=== PATIENT | female | born 1965 | race Caucasian/White ===

== ENCOUNTER 2020-07-10 12:14 | Emergency (ER) | payer MEDICAID, OTHER ==
[~2020-07-10] VITALS: Ht 162.6 cm; Wt 68.0 kg
[~2020-07-10 12:14] MED LIST: CIPR500T94 PO; CYCL-331 PO; IBUP200T44 PO
[2020-07-10 12:21] VITALS: BP 120/58
--- NOTE | 2020-07-10 13:01 | PHYS DOC ---
Past History Past Medical History: Anxiety, Depression, Schizophrenia Additional Past Medical Histor: hepatitis C (JAXON HANSEN DO) Past Surgical History: Other (JAXON HANSEN DO) Smoking: Less than 1pk/day Alcohol Use: None Drug Use: None (JAXON HANSEN DO) General Adult EDM: Chief Complaint: PSYCH EVALUATION HPI: HPI: 55 yo F PMH schizophrenia presents to the ed on 07/08, hx concerning for psychosis with homicidal ideations, made threatening comments of about wanting to hurt her son. Patient is well-known to this ED and noncompliant with her schizophrenic medications. Urinalysis was not obtained on prior ED visit. Potassium was 3.2 and replaced with 40 mEq oral potassium. Rapid Covid was negative. Pt with no complaints in ed. Is refusing to provide urine sample. (JAXON HANSEN DO) Review of Systems: Review of Systems: Constitutional: Denies fever or chills Eyes: Denies change in visual acuity HENT: Denies nasal congestion or sore throat Respiratory: Denies cough or shortness of breath Cardiovascular: Denies chest pain or edema GI: Denies abdominal pain, nausea, vomiting, bloody stools or diarrhea : Denies dysuria Musculoskeletal: Denies back pain or joint pain Integument: Denies rash Neurologic: Denies headache, focal weakness or sensory changes Endocrine: Denies polyuria or polydipsia Lymphatic: Denies swollen glands Psychiatric: Denies depression or anxiety (JAXON HANSEN DO) Allergies: Allergies: Allergies Coded Allergies Type Severity Reaction Last Updated Verified No Known Drug Allergies 07/08/20 No (JAXON HANSEN DO) Physical Exam: PE: Constitutional: Well developed, well nourished, no acute distress, non-toxic appearance. HENT: Normocephalic, atraumatic, Eyes: EOMI, conjunctiva normal, no discharge. Neck: Normal range of motion, supple, Cardiovascular: S1/2 present, regular rhythm Lungs & Thorax: Speaking in full sentences, bilateral equal chest rise, no tachypnea or increased work of breathing Abdomen: soft, no tenderness, Skin: Warm, dry, no erythema, no rash. [] Back: No tenderness, no CVA tenderness. [] Extremities: No tenderness, no cyanosis, no lower extremity edema Neurologic: Alert and oriented X 3, normal motor function, normal sensory function, no focal deficits noted. [] Psychologic: calm, becomes irritated with providing urine sample, is verbally directable, very disorganized, sleeping majority of shift (JAXON HANSEN DO) Current Patient Data: Vital Signs: Vital Signs Date Time Temp Pulse Resp B/P (MAP) Pulse Ox O2 Delivery O2 Flow Rate FiO2 07/10/20 12:21 97.2 80 16 120/58 (78) 95 Room Air (JAXON HANSEN DO) EKG: EKG: [] (JAXON HANSEN DO) Radiology/Procedures: Radiology/Procedures: [] (JAXON HANSEN DO) Heart Score: Risk Factors: Risk Factors: DM, Current or recent (<one month) smoker, HTN, HLP, family history of CAD, obesity. Risk Scores: Score 0 - 3: 2.5% MACE over next 6 weeks - Discharge Home Score 4 - 6: 20.3% MACE over next 6 weeks - Admit for Clinical Observation Score 7 - 10: 72.7% MACE over next 6 weeks - Early Invasive Strategies (JAXON HANSEN DO) Course & Med Decision Making: Course & Med Decision Making Pertinent Labs and Imaging studies reviewed. (See chart for details) [] Concern for psychosis in the setting of schizophrenia with homicidal ideations. Patient was discharged from the hospital earlier today for evaluation by a beauty operator. Patient is court ordered for inpatient psych. U/A contaminated, patient not with negative urine drug screen. Patient is excepted at [facility] that requests pt to be set at 11pm - no bed available until then. Transfer papers signed. Due to shift change/pt present in ed awaiting transfer, pt signed out to oncoming physician. (JAXON HANSEN DO) Course & Med Decision Making Did not see or evaluate patient. This patient was not here during my shift. (VANESSA HENRY MD) Dragon Disclaimer: Dragon Disclaimer: This electronic medical record was generated, in whole or in part, using a voice recognition dictation system. (JAXON HANSEN DO) Departure Departure: Impression: Primary Impression: Psychosis Additional Impression: Homicidal ideations Disposition: 65 DC/TRF TO PSYCH HOSP ([facility], accepted by Dr. Lizbeth) Condition: STABLE Referrals: PCP,NO (PCP) JAXON HANSEN DO Jul 10, 2020 13:01 VANESSA HENRY MD Jul 10, 2020 21:30
[2020-07-10 16:56] LABS: U PREG PATIENT NEGATIVE (NEG)
[2020-07-10 16:57] LABS: BILIRUBIN,URINE SMALL (NEG); CLARITY,URINE CLEAR; COLOR,URINE AMBER; GLUCOSE,URINE NEG (NEG)
[2020-07-10 16:58] LABS: BACTERIA,URINE FEW /HPF (0-FEW); NITRITE,URINE NEG (NEG); SQUAMOUS EPITHELIAL CELL,UR MOD /LPF; UROBILINOGEN,URINE >=8.0 mg/dL (0.2 mg/dL)
[2020-07-10 17:06] LABS: AMPHETAMINE/METHAMPHETAMINE NEG (NEG); BARBITURATES NEG (NEG); BENZODIAZEPINES NEG (NEG); CANNABINOIDS NEG (NEG); COCAINE NEG (NEG); METHADONE NEG (NEG); OPIATES NEG (NEG); PHENCYCLIDINE NEG (NEG)
== END 2020-07-10 22:30 ==
LOC: ER 12:14
DX: F29 Unspecified psychosis not due to a substance or known physiological condition (principal); R45.850 Homicidal ideations; F20.9 Schizophrenia, unspecified; F41.9 Anxiety disorder, unspecified; F32.9 Major depressive disorder, single episode, unspecified; F17.200 Nicotine dependence, unspecified, uncomplicated
CPT/HCPCS: 36415; 80307; 81001; 81025; 99285

== ENCOUNTER 2020-09-10 22:23 | Emergency (ER) | payer OTHER, MEDICAID ==
[~2020-09-10] VITALS: Ht 162.6 cm; Wt 91.0 kg
[~2020-09-10 22:23] MED LIST changes: +LIDOCAINE 2% SYRINGE 100 MG/5 ML DISP.SYRIN. ONE; +MIDAZOLAM HCL PF 5 MG/5 ML VIAL. ONE; +PROPOFOL 10,000 MCG/ML (20ML) VIAL IV ONE
--- NOTE | 2020-09-10 22:36 | PHYS DOC ---
Past History Past Medical History: Anxiety, Depression, Hepatitis, Schizophrenia Additional Past Medical Histor: hepatitis C Past Surgical History: Other Smoking: Less than 1pk/day Alcohol Use: None Drug Use: None General Adult HPI: HPI: - no response to noxious stimuli- Patient is a 55 year old female who presents with acute mental status change. Pt. last seen normal approximately 5 hrs ago. Son found mother in bath robe and non-responsive. Was unable to arouse his mother and called EMS. Patient on arrival snoring respirations with no gag response. Eyes Fixed midline. Patient was limp with occasional twitching type movements but no response to noxious stimuli. Glucose check was 154 per paramedics. Patient given two amps of Narcan upon arrival with no response. Patient was intubated for protection of airway. Patient has past medical history for anxiety, depression, schizophrenia, hepatitis C, homicidal ideation, suicidal ideation, no ncompliance, and tobacco abuse. Patient previously evaluated in the emergency department on 07/10/2020 for suicidal and homicidal ideation. Patient at that time transferred to [facility]. Evaluation at [facility] is unknown . It is unknow if patient took an overdose of her psych meds. Prescribed at [facility].., But pt. has history of this type behavior in the past. Patient on arrival was febrile with a temp of 101.5. Patient accelerated hypertensive. Reportedly no recent history of travel or specific ill contacts. No history of trauma. Review of Systems: Review of Systems: Not currently available due to the patient's mental status Family History: Family History: Not currently available because of patient's mental status Current Medications: Current Meds: Current Medications Medications (Trade) Dose Ordered Sig/La Start Time Stop Time Status Last Admin Dose Admin Ceftriaxone Sodium 2 gm/ Sodium Chloride 100 ml @ 200 mls/hr 1X ONCE 09/10/20 22:45 09/10/20 23:14 UNV Lactated Ringer's 1,000 ml @ 1,000 mls/hr Q1H 09/10/20 22:45 09/10/20 23:44 UNV Allergies: Allergies: Allergies Coded Allergies Type Severity Reaction Last Updated Verified amitriptyline Allergy Unknown 07/10/20 Yes Physical Exam: PE: Constitutional:in acute distress, appearance under effects of drug- by her twitching and extra pyramidal movements HENT: Normocephalic, atraumatic, bilateral external ears normal, oropharynx dry, no oral exudates, nose normal. No gag. Eyes: PERRLA, EOMI, conjunctiva normal, no discharge. [] Neck: Normal range of motion, no tenderness, supple, snoring respirations. Trachea midline Cardiovascular: Tachycardia heart rate regular rhythm, no murmur [] Lungs & Thorax: Bilateral breath sounds rhonchi, Rales on auscultation [] rhonchi more on Rt upper posterior lung flores. Borderline oxygen saturations with 100% nonrebreather Abdomen: Bowel sounds decreased, soft, no tenderness, no masses, no pulsatile masses. [] Skin: Warm, dry, no erythema, no rash. [] Back: No tenderness, no CVA tenderness. [] Extremities: Flaccid no response to noxious stimuli no edema. [] Neurologic: No response to noxious stimuli, did not cross react or withdrawal to noxious stimuli . DTRs +2 patella and brachial. Twitching type movements or jerks Psychologic: Unable to assess due to patient's mental status EKG: EKG: My interpretation of EKG shows a sinus at 98 bpm. [] Radiology/Procedures: Radiology/Procedures: [address] [address] IMAGING REPORT Signed PATIENT: DREAD BARBOSA ACCOUNT: [id number] : 1965 LOCATION: ER AGE: 55 SEX: F EXAM STATUS: PRE ER ORD. PHYSICIAN: NATHAN BRICEÑO MD REASON: DYSPNEA. RAD CONFIRM TUBE PLACEMENT PROCEDURE: PORTABLE CHEST 1V Study: XR CHEST 1V Indication: Dyspnea. Tube placement. Comparison: None. Findings: Endotracheal tube terminates approximately 1 cm above the lv. Enteric tube tip and sidehole are within the stomach. Streaky retrocardiac densities in the left favored on account of volume loss. No layering effusion or pneumothorax. The cardiomediastinal silhouette and katerina are within normal limits. Impression: 1. The endotracheal tube is within the trachea but is only 1 cm above the lv. Retraction by a few centimeters could be considered. Well-positioned enteric tube. 2. No acute radiographic abnormality of the chest. Mild appearing volume loss at the left lung base. Electronically signed by: DARIELA REN MD (09/11/2020 12:04 AM) [facility] DICTATED AND SIGNED BY: DARIELA REN MD DATE: 09/11/20 0002 CC: NATHAN BRICEÑO MD; PCP,NO ~MTH0 0 [][place] [address] IMAGING REPORT Signed PATIENT: DREAD BARBOSA ACCOUNT: [id number] : 1965 LOCATION: ER AGE: 55 SEX: F EXAM STATUS: REG ER ORD. PHYSICIAN: NATHAN BRICEÑO MD REASON: ACUTE MENTAL STATUS CHANGE PROCEDURE: CT HEAD WO CONTRAST STUDY: CT head without contrast INDICATION: Change in mental status. COMPARISON: None. TECHNIQUE: Axial CT imaging through the head without the use of intravenous contrast. Sagittal and coronal reformats were obtained. One or more of the following individualized dose reduction techniques were utilized for this examination: 1. Automated exposure control 2. Adjustment of the mA and/or kV according to patient size 3. Use of iterative reconstruction technique. FINDINGS: No acute intracranial hemorrhage. No mass effect, midline shift or hydrocephalus. Weeks-white matter differentiation is maintained. Unremarkable calvarium. No layering fluid seen within the visualized paranasal sinuses. Unremarkable mastoid air cells and middle ears. IMPRESSION: No acute intracranial abnormality by CT. Electronically signed by: DARIELA REN MD (09/11/2020 12:29 AM) [facility] DICTATED AND SIGNED BY: DARIELA REN MD DATE: 09/11/20 0028 CC: NATHAN BRICEÑO MD; PCP,NO ~MTH0 0 Heart Score: C/O Chest Pain: N/A HEART Score for Chest Pain: HEART Score for Chest Pain Response (Comments) Value History Slighlty/Non-Suspicious 0 ECG Normal 0 Age >45 - < 65 1 Risk Factors 1 or 2 Risk Factors 1 Troponin < Normal Limit 0 Total 2 Risk Factors: Risk Factors: DM, Current or recent (<one month) smoker, HTN, HLP, family history of CAD, obesity. Risk Scores: Score 0 - 3: 2.5% MACE over next 6 weeks - Discharge Home Score 4 - 6: 20.3% MACE over next 6 weeks - Admit for Clinical Observation Score 7 - 10: 72.7% MACE over next 6 weeks - Early Invasive Strategies Course & Med Decision Making: Course & Med Decision Making Pertinent Labs and Imaging studies reviewed. (See chart for details) Procedure note- Intubation-emergent intubation for protection of airway. Patient Mallampati 3. No obvious facial neck or head trauma. Patient received succinylcholine 100 mg, 2 mg of Versed, and lidocaine 100 mg. 7. titrated for lung volumes tube placed with videoscope with follow-up, with tube CO2 change. Breath sounds equal apex. No breath sounds over stomach. Increase oxygenation. Tube secured with fixation device at 23 cm gum line. Patient sedated with propofol and Versed. Oxygen passed without auscultation over stomach. The chest x-ray shows adequate placement of OG and ET tube. After being placed on BiPAP pH 7.42 CO2 38 oxygen 177 bicarb 24 100%-BiPAP titrate for lung volumes of 500 [] Attempt at central line left IJ= unable to thread triple-lumen over wire. Attempt DC'd and x-ray was performed showed no pneumothorax and adequate ET and NG placement. Discussed presentation testing and treatment plan with Dr. Alatorre advised he would accept pt at [facility]. Critical Care time not counting procedure was 90 min.s. Impression: 1. Acute Mental Status Change 2. Accelerated hypertension 3. Diabetes glucose 176 4. Elevated troponin 0.125 5. Elevated AST60, ALT 82, Alk Mait337 6. Tachycardia 7. Fever Drugs Screens Pending at transfer [facility] Pt appear s to have some salicylates in her system but minimal Tylenol so will treat her fever with rectal Tylenol and fluid boluses. Pt. did receive Versed for possible atypical seizure vs postictal seizure. Pt also received two grams of Rocephin if there is a bacterial source of fever. Still suspect most like a over dosage of psychiatric meds because of fever, extraparametal movements etc.. Dragon Disclaimer: Tonio Disclaimer: This electronic medical record was generated, in whole or in part, using a voice recognition dictation system. Departure Departure: Referrals: PCP,NO (PCP) Tonio Disclaimer This chart was dictated in whole or in part using Voice Recognition software in a busy, high-work load, and often noisy Emergency Department environment. It may contain unintended and wholly unrecognized errors or omissions. NATHAN BRICEÑO MD Sep 10, 2020 22:36
[2020-09-10] MEDS ORDERED: IV NORMAL SALINE 100ML 100 ML ONE (22:41)
[2020-09-10] MEDS ORDERED: NALOXONE 2 MG/2 ML DISP.SYRIN. IV ONE (22:45)
[2020-09-10] MEDS ORDERED: IV RINGERS SOLUTION,LACTATED 1,000 ML IV SCH (22:45)
[2020-09-10] MEDS ORDERED: NALOXONE 0.4 MG/ML VIAL. ONE (22:45)
[2020-09-10] MEDS ORDERED: IV RINGERS SOLUTION,LACTATED 1,000 ML IV ONE (22:45)
[2020-09-10] MEDS ORDERED: PROPOFOL 100 ML IV ONE (22:54)
[2020-09-10] MEDS ORDERED: SUCCINYLCHOLINE 200 MG/10 ML VIAL. ONE (22:54)
[2020-09-10 23:05] LABS: CALCIUM 9.3 mg/dL (8.5-10.1); CREATININE 1.1 mg/dL (0.6-1.0); POTASSIUM 4.1 mmol/L (3.5-5.1)
[2020-09-10 23:06] LABS: BASO # 0.1 x10^3/uL (0.0-0.2); BASO % 1 % (0-3); EOS % 0 % (0-3); HEMATOCRIT 40.5 % (36.0-47.0); HEMOGLOBIN 13.4 g/dL (12.0-15.5); LYMPH # 1.1 x10^3/uL (1.0-4.8); LYMPH % 10 % (24-48); MEAN CORPUSCULAR HEMOGLOBIN 30 pg (25-35); MEAN CORPUSCULAR HGB CONC 33 g/dL (31-37); MEAN CORPUSCULAR VOLUME 90 fL (79-100); MONO # 0.5 x10^3/uL (0.0-1.1); MONO % 5 % (0-9); NEUT # 9.2 x10^3uL (1.8-7.7); NEUT % 84 % (31-73); PLATELET COUNT 229 x10^3/uL (140-400); RED BLOOD COUNT 4.47 x10^6/uL (3.50-5.40); RED CELL DISTRIBUTION WIDTH 13.9 % (11.5-14.5)
[2020-09-10 23:07] LABS: ACETAMIN < 2.0 mcg/mL (10-30); SALIC 2.8 mg/dL (2.8-20.0)
[2020-09-10 23:08] LABS: ETHANOL < 10 mg/dL (0-10)
[2020-09-10] MEDS ORDERED: LABETALOL 20 MG/4 ML DISP.SYRIN. ONE (23:10)
[2020-09-10 23:19] LABS: ALBUMIN 3.3 g/dL (3.4-5.0); DIRECT BILIRUBIN 0.2 mg/dL (0.0-0.2); MAGNESIUM 1.3 mg/dL (1.8-2.4); TOTAL BILIRUBIN 0.5 mg/dL (0.2-1.0); TOTAL PROTEIN 7.7 g/dL (6.4-8.2)
--- NOTE | 2020-09-11 00:07 | RAD ---
Study: XR CHEST 1V Indication: Dyspnea. Tube placement. Comparison: None. Findings: Endotracheal tube terminates approximately 1 cm above the lv. Enteric tube tip and sidehole are w ithin the stomach. Streaky retrocardiac densities in the left favored on account of volume loss. No layering effusion or pneumothorax. The cardiomediastinal silhouette and katerina are within normal limits. Impression: 1. The endotracheal tube is within the trachea but is only 1 cm above the lv. Retraction by a few centimeters could be considered. Well-positioned enteric tube. 2. No acute radiographic abnormality of the chest. Mild appearing volume loss at the left lung base. Electronically signed by: DARIELA REN MD (09/11/2020 12:04 AM) [facility]
[2020-09-11] MEDS ORDERED: ACETAMINOPHEN 650 MG SUPP.RECT. PR ONE (00:30)
--- NOTE | 2020-09-11 00:31 | RAD ---
STUDY: CT head without contrast INDICATION: Change in mental status. COMPARISON: None. TECHNIQUE: Axial CT imaging through the head without the use of intravenous contrast. Sagittal and co heide reformats were obtained. One or more of the following individualized dose reduction techniques were utilized for this examinat ion: 1. Automated exposure control 2. Adjustment of the mA and/or kV according to patient size 3. Use of iterative reconstruction technique. FINDINGS: No acute intracranial hemorrhage. No mass effect, midline shift or hydrocephalus. Weeks-white matter d ifferentiation is maintained. Unremarkable calvarium. No layering fluid seen within the visualized paranasal sinuses. Unremarkable mastoid air cells and middle ears. IMPRESSION: No acute intracranial abnormality by CT. Electronically signed by: DARIELA REN MD (09/11/2020 12:29 AM) [facility]
[2020-09-11 00:59] LABS: BARBITURATES NEG (NEG); BENZODIAZEPINES POS (NEG); CANNABINOIDS NEG (NEG); COCAINE NEG (NEG); METHADONE NEG (NEG); OPIATES NEG (NEG); PHENCYCLIDINE NEG (NEG)
[2020-09-11 01:03] LABS: BACTERIA,URINE 0 /HPF (0-FEW); BILIRUBIN,URINE SMALL (NEG); CLARITY,URINE CLEAR; COLOR,URINE AMBER; GLUCOSE,URINE NEG (NEG); NITRITE,URINE NEG (NEG)
[2020-09-11 01:04] LABS: AMPHETAMINE/METHAMPHETAMINE NEG (NEG)
[2020-09-11 01:09] LABS: BGAS PH 7.4 (7.35-7.45)
[2020-09-11 01:59] VITALS: BP 177/89
[2020-09-11] MEDS ORDERED: LABETALOL 20 MG/4 ML DISP.SYRIN. IVP ONE (02:00)
[2020-09-11] MEDS ORDERED: MIDAZOLAM HCL PF 5 MG/5 ML VIAL. IV ONE (02:00)
[2020-09-11] MEDS ORDERED: SUCCINYLCHOLINE 200 MG/10 ML VIAL. IV ONE (02:00)
[2020-09-11] MEDS ORDERED: PROPOFOL 10,000 MCG/ML (20ML) VIAL IV ONE (02:30)
[2020-09-11] MEDS ORDERED: LIDOCAINE 2% PF 5 ML VIAL. IV ONE (02:30)
[2020-09-11] MEDS ORDERED: NALOXONE 0.4 MG/ML VIAL. IV ONE (02:30)
--- NOTE | 2020-09-11 03:50 | EKG ---
[address] [address] Test Date: 2020-09-10 Test Time: 23:53:21 Pat Name: DREAD BARBOSA Department: Room: Gender: F Electronics Warfare Technician: OUMOU : 1965 Requested By: NATHAN BRICEÑO Order Number: [id number] Reading MD: Measurements Intervals [place] Rate: 98 P: 66 CO: 146 QRS: 57 QRSD: 76 T: 38 QT: 348 QTc: 446 Interpretive Statements SINUS RHYTHM NORMAL ECG RI6.02 No previous ECG available for comparison
== END 2020-09-11 02:02 | disposition short-term general hospital (02) ==
LOC: ER 22:23
DX: R41.82 Altered mental status, unspecified (principal); I10 Essential (primary) hypertension; E11.9 Type 2 diabetes mellitus without complications; R77.8 Other specified abnormalities of plasma proteins; R79.89 Other specified abnormal findings of blood chemistry; R00.0 Tachycardia, unspecified; R50.9 Fever, unspecified; F41.9 Anxiety disorder, unspecified; F32.9 Major depressive disorder, single episode, unspecified; F20.9 Schizophrenia, unspecified; F17.200 Nicotine dependence, unspecified, uncomplicated; Z20.822 Contact with and (suspected) exposure to COVID-19; Z88.8 Allergy status to other drugs, medicaments and biological substances
CPT/HCPCS: 31500; 36415; 36556; 36600; 51702; 70450; 71045; 80048; 80076; 80307; 80329; 81001; 82550; 82803; 83605; 83690; 83735; 83880; 84443; 84484; 85025; 85379; 85610; 85730; 86140; 87040; 87205; 93005; 94002; 96361; 96365; 96375; 99291; 99292; C9803; G0480; J0330; J0696; J2001; J2250; J2310; J2704; J3490; J7120; U0003; U0005; 87077

== ENCOUNTER 2020-11-19 15:34 | Emergency (ER) | payer OTHER, MEDICAID ==
[~2020-11-19] VITALS: Ht 167.6 cm; Wt 82.0 kg
[~2020-11-19 15:34] MED LIST changes: -LIDOCAINE 2% SYRINGE 100 MG/5 ML DISP.SYRIN. ONE; -MIDAZOLAM HCL PF 5 MG/5 ML VIAL. ONE; -PROPOFOL 10,000 MCG/ML (20ML) VIAL IV ONE
--- NOTE | 2020-11-19 16:37 | PHYS DOC ---
Past History Past Medical History: Anxiety, Depression, Hepatitis, Schizophrenia Additional Past Medical Histor: hepatitis C (MAGNO LEE APRN) Past Surgical History: , Tubal ligation, Other (MAGNO LEE APRN) Smoking: Less than 1pk/day Alcohol Use: None Drug Use: None (MAGNO LEE APRN) General Adult EDM: Chief Complaint: MEDICAL CLEARANCE HPI: HPI: Patient is a 55-year-old female being sent to the ER today by [facility] deputy. Patient was evicted from her home today for unsafe living conditions. The [facility]'s deputy determined that patient has mental health problems and takes no medications and so she was sent here for a mental health evaluation. Patient reports a history of schizoaffective disorder and depression she takes no medications for these health problems and has not taken any medications for a long time. Patient reports that she used to take Cymbalta. She does not follow-up with anyone for mental health but she reports she is willing to to inpatient mental health treatment. patient denies any suicidal or homicidal ideation, she reports occasional auditory hallucinations but denies visual indra lucinations. She denies headache, chest pain, shortness of breath, dizziness. (MAGNO LEE APRN) Review of Systems: Review of Systems: 14 body systems of the review of systems have been reviewed. See HPI for pertinent positive and negative responses, otherwise all other systems are negative, nonpertinent or noncontributory (MAGNO LEE APRN) Allergies: Allergies: Allergies Coded Allergies Type Severity Reaction Last Updated Verified amitriptyline Allergy Unknown 07/10/20 Yes (MAGNO LEE APRN) Physical Exam: PE: Constitutional: Well developed, well nourished, no acute distress, non-toxic appearance. [] HENT: Normocephalic, atraumatic Eyes: PERRLA, EOMI, conjunctiva normal, no discharge. [] Neck: Normal range of motion, no stridor [] Cardiovascular:Heart rate regular rhythm, no murmur [] Lungs & Thorax: Bilateral breath sounds clear to auscultation [] Skin: Warm, dry, no erythema, no rash. [] Back: No tenderness Extremities: No tenderness, no cyanosis, no clubbing, ROM intact, no edema. [] Neurologic: Alert and oriented X 3, normal motor function, normal sensory function, no focal deficits noted. [] Psychologic: Affect normal, judgement normal, mood normal. [] (MAGNO LEE APRN) Current Patient Data: Labs: Laboratory Tests Test 11/19/20 18:51 11/19/20 18:54 White Blood Count 6.4 x10^3/uL Red Blood Count 4.23 x10^6/uL Hemoglobin 12.3 g/dL Hematocrit 38.2 % Mean Corpuscular Volume 90 fL Mean Corpuscular Hemoglobin 29 pg Mean Corpuscular Hemoglobin Concent 32 g/dL Red Cell Distribution Width 14.8 % Platelet Count 200 x10^3/uL Neutrophils (%) (Auto) 50 % Lymphocytes (%) (Auto) 36 % Monocytes (%) (Auto) 11 % Eosinophils (%) (Auto) 3 % Basophils (%) (Auto) 1 % Neutrophils # (Auto) 3.2 x10^3uL Lymphocytes # (Auto) 2.3 x10^3/uL Monocytes # (Auto) 0.7 x10^3/uL Eosinophils # (Auto) 0.2 x10^3/uL Basophils # (Auto) 0.0 x10^3/uL Sodium Level 144 mmol/L Potassium Level 3.8 mmol/L Chloride Level 110 mmol/L Carbon Dioxide Level 29 mmol/L Anion Gap 5 Blood Urea Nitrogen 11 mg/dL Creatinine 0.9 mg/dL Estimated GFR (Cockcroft-Gault) 65.5 BUN/Creatinine Ratio 12 Glucose Level 102 mg/dL Calcium Level 8.4 mg/dL Total Bilirubin 0.2 mg/dL Aspartate Amino Transf (AST/SGOT) 58 U/L Alanine Aminotransferase (ALT/SGPT) 69 U/L Alkaline Phosphatase 108 U/L Total Protein 7.1 g/dL Albumin 3.2 g/dL Albumin/Globulin Ratio 0.8 SARS-CoV-2 Antigen (Rapid) Negative Vital Signs: Vital Signs Date Time Temp Pulse Resp B/P (MAP) Pulse Ox O2 Delivery O2 Flow Rate FiO2 11/19/20 16:15 98.1 84 16 145/67 98 Room Air (MAGNO LEE APRN) EKG: EKG: [] (MAGNO LEE APRN) Radiology/Procedures: Radiology/Procedures: [] (MAGNO LEE APRN) Heart Score: C/O Chest Pain: No Risk Factors: Risk Factors: DM, Current or recent (<one month) smoker, HTN, HLP, family history of CAD, obesity. Risk Scores: Score 0 - 3: 2.5% MACE over next 6 weeks - Discharge Home Score 4 - 6: 20.3% MACE over next 6 weeks - Admit for Clinical Observation Score 7 - 10: 72.7% MACE over next 6 weeks - Early Invasive Strategies (MAGNO LEE APRN) Course & Med Decision Making: Course & Med Decision Making Pertinent Labs and Imaging studies reviewed. (See chart for details) Patient sent to the ER today for a mental health evaluation. I spoke with the PAT team and they will come in to evaluate patient for inpatient psychiatric treatment. Patient is notified of this care plan and is agreeable at this time for inpatient psychiatric treatment if available. Patient spoke with the pact team. Patient states that she is to follow-up at the [facility] but no longer is willing to follow-up there. She also reports that she was inpatient at [facility] in May she does have a positive history of suicidal ideation and self-harm by cutting. Labs ordered for medical clearance for inpatient hospitalization. Her blood work is unremarkable and she is noted for inpatient psychiatric placement. I spoke with staff member at [facility] and gave them report. They will be excepting patient for inpatient psychiatric treatment. (MAGNO LEE APRN) Course & Med Decision Making Did not see or evaluate patient. Agree with CRITICAL CARE UNIT NURSE's work-up and disposition per note. (VANESSA HENRY MD) Dragon Disclaimer: Dragon Disclaimer: This electronic medical record was generated, in whole or in part, using a voice recognition dictation system. (MAGNO LEE APRN) Departure Departure: Impression: Primary Impression: Psychiatric disturbance Disposition: [facility] Condition: GOOD Referrals: PCP,NO (PCP) Patient Instructions: Depression, Adult, Schizoaffective Disorder Additional Instructions: Thank you for choosing [facility] and allowing me to participate in your care. Please follow up with your primary care provider tomorrow regarding your ER visit. You are being sent to [facility] for in patient psychiatric treatment. If you in the future experience suicidal or homicidal ideation please the ER immediately. EMERGENCY DEPARTMENT GENERAL DISCHARGE INSTRUCTIONS Thank you for coming to [facility] (ED) today and trusting us with you care. We trust that you had a positivie experience in our Emergency Department. If you wish to speak to the department management, you may call the director at [phone]. YOUR FOLLOW UP INSTRUCTIONS ARE FOLLOWS: 1. Do you have a private Doctor? If you do not have a private doctor, please ask for a resource list of physicians or clinics that may be able to assist you with follow up care. 2. The Emergency Physician has interpreted your x-rays. The X-Ray specialist will also review them. If there is a change in the findings, you will be notified in 48 hours when at all possible. 3. A lab test or culture has been done, your results will be reviewed and you will be notified if you need a change in treatment. ADDITIONAL INSTRUCTIONS AND INFORMATION: 1. Your care today has been supervised by a physician who is specially trained in emergency care. Many problems require more than one evaluation for a complete diagnosis and treatment. We recommend that you schedule your follow up appointment as recommended to ensure complete treatment of you illness or injury. If you are unable to obtain follow up care and continue to have a problem, or if your condition worsens, we recommend that you return to the ED. 2. We are not able to safely determine your condition over the phone nor are we able to give sound medical advice over the phone. For these safety reasons, if you call for medical advice we will ask you to come to the ED for further evaluation. 3. If you have any questions regarding these discharge instructions please call the ED at [phone]. SAFETY INFORMATION: In the interest of safety, wellness, and injury prevention; we encourage you to wear your sealbelt, if you smoke; quite smoking, and we encourage family to use a protective helmet for bicycling and other sporting events that present an increased risk for head injury. IF YOUR SYMPTOMS WORSEN OR NEW SYMPTOMS DEVELOP, OR YOU HAVE CONCERNS ABOUT YOUR CONDITION; OR IF YOUR CONDITION WORSENS WHILE YOU ARE WAITING FOR YOUR FOLLOW UP APPO INTMENT; EITHER CONTACT YOUR PRIMARY CARE DOCTOR, THE PHYSICIAN WHOSE NAME AND NUMBER YOU WERE GIVEN, OR RETURN TO THE ED IMMEDIATELY. MAGNO LEE APRN Nov 19, 2020 16:37 VANESSA HENRY MD Nov 19, 2020 20:55
[2020-11-19 19:21] LABS: CALCIUM 8.4 mg/dL (8.5-10.1); CREATININE 0.9 mg/dL (0.6-1.0); GFR 65.5; POTASSIUM 3.8 mmol/L (3.5-5.1)
[2020-11-19 19:22] LABS: BASO % 1 % (0-3); EOS # 0.2 x10^3/uL (0.0-0.7); EOS % 3 % (0-3); HEMATOCRIT 38.2 % (36.0-47.0); HEMOGLOBIN 12.3 g/dL (12.0-15.5); LYMPH # 2.3 x10^3/uL (1.0-4.8); LYMPH % 36 % (24-48); MEAN CORPUSCULAR HEMOGLOBIN 29 pg (25-35); MEAN CORPUSCULAR HGB CONC 32 g/dL (31-37); MEAN CORPUSCULAR VOLUME 90 fL (79-100); MONO # 0.7 x10^3/uL (0.0-1.1); MONO % 11 % (0-9); NEUT # 3.2 x10^3uL (1.8-7.7); NEUT % 50 % (31-73); PLATELET COUNT 200 x10^3/uL (140-400); RED BLOOD COUNT 4.23 x10^6/uL (3.50-5.40); RED CELL DISTRIBUTION WIDTH 14.8 % (11.5-14.5); WHITE BLOOD COUNT 6.4 x10^3/uL (4.0-11.0)
[2020-11-19 19:27] LABS: ALBUMIN 3.2 g/dL (3.4-5.0); ALBUMIN/GLOBULIN RATIO 0.8 (1.0-1.7); TOTAL BILIRUBIN 0.2 mg/dL (0.2-1.0); TOTAL PROTEIN 7.1 g/dL (6.4-8.2)
[2020-11-19 21:53] VITALS: BP 138/72
== END 2020-11-19 21:53 ==
LOC: ER 15:34
DX: F41.9 Anxiety disorder, unspecified (principal); F32.9 Major depressive disorder, single episode, unspecified; F20.9 Schizophrenia, unspecified; F17.200 Nicotine dependence, unspecified, uncomplicated; Z98.51 Tubal ligation status; Z20.822 Contact with and (suspected) exposure to COVID-19
CPT/HCPCS: 36415; 80053; 85025; 87426; 99283; C9803; U0003

== ENCOUNTER 2020-12-12 18:28 | Emergency (ER) | payer OTHER, MEDICAID ==
[~2020-12-12] VITALS: Ht 163.8 cm; Wt 80.8 kg
[2020-12-12] MEDS ORDERED: IV NORMAL SALINE 1,000ML 1,000 ML IV ONE ×2 (20:15)
[2020-12-12 20:36] LABS: BASO # 0.1 x10^3/uL (0.0-0.2); BASO % 1 % (0-3); EOS # 0.2 x10^3/uL (0.0-0.7); EOS % 2 % (0-3); LYMPH # 2.4 x10^3/uL (1.0-4.8); LYMPH % 23 % (24-48); MEAN CORPUSCULAR HEMOGLOBIN 29 pg (25-35); MEAN CORPUSCULAR HGB CONC 34 g/dL (31-37); MEAN CORPUSCULAR VOLUME 87 fL (79-100); MONO # 1.1 x10^3/uL (0.0-1.1); MONO % 10 % (0-9); NEUT # 6.8 x10^3uL (1.8-7.7); NEUT % 64 % (31-73); PLATELET COUNT 235 x10^3/uL (140-400); RED BLOOD COUNT 4.14 x10^6/uL (3.50-5.40); RED CELL DISTRIBUTION WIDTH 16.3 % (11.5-14.5); WHITE BLOOD COUNT 10.6 x10^3/uL (4.0-11.0)
--- NOTE | 2020-12-12 20:43 | PHYS DOC ---
Past History Past Medical History: Anxiety, Depression, Hepatitis, Schizophrenia Additional Past Medical Histor: hepatitis C (JOSE RAFAEL JOHNSTON APRN) Past Surgical History: , Tubal ligation, Other (JOSE RAFAEL JOHNSTON APRN) Smoking: Less than 1pk/day Alcohol Use: None Drug Use: None (JOSE RAFAEL JOHNSTON APRN) General Adult EDM: Chief Complaint: HEAT EXPOSURE HPI: HPI: Patient is a 55-year-old female who presents with heat exhaustion. Patient is homeless and states that she has been outside for the last 2 days. Patient states "I hurt all over, my whole body hurts". Patient has a sunburn to her feet, arms and face. Patient is alert and oriented. Denies nausea/vomiting/diarrhea. Hemodynamically stable. History of schizophrenia, anxiety and depression. (JOSE RAFAEL JOHNSTON APRN) Review of Systems: Review of Systems: Constitutional: Denies fever or chills Eyes: Denies change in visual acuity HENT: Denies nasal congestion or sore throat Respiratory: Denies cough or shortness of breath Cardiovascular: Denies chest pain or edema GI: Denies abdominal pain, nausea, vomiting, bloody stools or diarrhea : Denies dysuria Musculoskeletal: Reports pain all over her body Integument: Sunburn to face, bilateral arms, bilateral feet Neurologic: Denies headache, focal weakness or sensory changes Endocrine: Denies polyuria or polydipsia Lymphatic: Denies swollen glands Psychiatric: Denies depression or anxiety (JOSE RAFAEL JOHNSTON APRN) Current Medications: Current Meds: Current Medications Medications (Trade) Dose Ordered Sig/[facility] Start Time Stop Time Status Last Admin Dose Admin Sodium Chloride 1,000 ml @ 1,000 mls/hr 1X ONCE 12/12/20 20:15 12/12/20 21:14 12/12/20 20:19 1,000 MLS/HR (JOSE RAFAEL JOHNSTON APRN) Allergies: Allergies: Allergies Coded Allergies Type Severity Reaction Last Updated Verified amitriptyline Allergy Unknown 07/10/20 Yes (JOSE RAFAEL JOHNSTON APRN) Physical Exam: PE: Constitutional: Well developed, well nourished, no acute distress, non-toxic appearance. [] HENT: Normocephalic, atraumatic, bilateral external ears normal, oropharynx moist, no oral exudates, nose normal. [] Eyes: PERRLA, EOMI, conjunctiva normal, no discharge. [] Neck: Normal range of motion, no tenderness, supple, no stridor. [] Cardiovascular:Heart rate regular rhythm, no murmur [] Lungs & Thorax: Bilateral breath sounds clear to auscultation [] Abdomen: Bowel sounds normal, soft, no tenderness, no masses, no pulsatile masses. [] Skin: Sunburn to bilateral arms, feet, face Back: No tenderness, no CVA tenderness. [] Extremities: Tenderness on all extremities, range of motion intact, no edema Neurologic: Alert and oriented X 3, normal motor function, normal sensory function, no focal deficits noted. [] Psychologic: Affect normal, judgement normal, mood normal. [] (JOSE RAFAEL JOHNSTON APRN) Current Patient Data: Vital Signs: Vital Signs Date Time Temp Pulse Resp B/P (MAP) Pulse Ox O2 Delivery O2 Flow Rate FiO2 12/12/20 18:29 98.4 98 163/86 (111) 98 Room Air 12/12/20 18:29 18 (JOSE RAFAEL JOHNSTON APRN) EKG: EKG: [] (JOSE RAFAEL JOHNSTON APRN) Radiology/Procedures: Radiology/Procedures: [] (JOSE RAFAEL JOHNSTON APRN) Heart Score: C/O Chest Pain: No Risk Factors: Risk Factors: DM, Current or recent (<one month) smoker, HTN, HLP, family history of CAD, obesity. Risk Scores: Score 0 - 3: 2.5% MACE over next 6 weeks - Discharge Home Score 4 - 6: 20.3% MACE over next 6 weeks - Admit for Clinical Observation Score 7 - 10: 72.7% MACE over next 6 weeks - Early Invasive Strategies (JOSE RAFAEL JOHNSTON APRN) Course & Med Decision Making: Course & Med Decision Making Pertinent Labs and Imaging studies reviewed. (See chart for details) [] 55-year-old female who presents with heat exhaustion. Patient is homeless been outside for the last 2 days. Patient is reporting she hurts all over. Patient has sunburn on bilateral arms, feet and face. Patient is alert and oriented.Patient given 2 L of normal saline bolus. All labs are unremarkable. BUN 15, creatinine 0.9. CK 199. UA positive for bacteria. Patient treated with fosfomycin for UTI. Discussed lab results with patient. Advised patient to make sure that she drinks plenty of water out of the sun. Patient can use aloe for sunburn. Instructed patient to return to emergency room with worsening symptoms or concerns. Patient states that her symptoms have improved. Patient is he modynamically stable and able to ambulate on her own out of the emergency room. Patient is appreciative and okay with discharge plan. (JOSE RAFAEL JOHNSTON APRN) Course & Med Decision Making Did not see or evaluate patient. Agree with REAL ESTATE UTILIZATION OFFICER's work-up and disposition per note. (VANESSA HENRY MD) Dragon Disclaimer: Dragon Disclaimer: This electronic medical record was generated, in whole or in part, using a voice recognition dictation system. (JOSE RAFAEL JOHNSTON APRN) Departure Departure: Impression: Primary Impression: UTI (urinary tract infection) Qualified Codes: N30.01 - Acute cystitis with hematuria Additional Impression: Heat exhaustion Qualified Codes: T67.5XXA - Heat exhaustion, unspecified, initial encounter Disposition: HOME / SELF CARE / HOMELESS Condition: STABLE Referrals: PCP,NO (PCP) Patient Instructions: Urinary Tract Infection Additional Instructions: You are seen in the emergency room for heat exhaustion. You were given fluids. Your urine was positive for bacteria. You were given an antibiotic in the emergency room to treat urinary tract infection. All of your other labs were negative. Please make sure you are drinking plenty of water so you can stay hydrated. Try to avoid standing in the sun. Return to emergency room for worsening symptoms or concerns. EMERGENCY DEPARTMENT GENERAL DISCHARGE INSTRUCTIONS Thank you for coming to [facility] (ED) today and trusting us with you care. We trust that you had a positivie experience in our Emergency Department. If you wish to speak to the department management, you may call the director at [phone]. YOUR FOLLOW UP INSTRUCTIONS ARE FOLLOWS: 1. Do you have a private Doctor? If you do not have a private doctor, please ask for a resource list of physicians or clinics that may be able to assist you with follow up care. 2. The Emergency Physician has interpreted your x-rays. The X-Ray specialist will also review them. If there is a change in the findings, you will be notified in 48 hours when at all possible. 3. A lab test or culture has been done, your results will be reviewed and you will be notified if you need a change in treatment. ADDITIONAL INSTRUCTIONS AND INFORMATION: 1. Your care today has been supervised by a physician who is specially trained in emergency care. Many problems require more than one evaluation for a complete diagnosis and treatment. We recommend that you schedule your follow up appointment as recommended to ensure complete treatment of you illness or injury. If you are unable to obtain follow up care and continue to have a problem, or if your condition worsens, we recommend that you return to the ED. 2. We are not able to safely determine your condition over the phone nor are we able to give sound medical advice over the phone. For these safety reasons, if you call for medical advice we will ask you to come to the ED for further evaluation. 3. If you have any questions regarding these discharge instructions please call the ED at [phone]. SAFETY INFORMATION: In the interest of safety, wellness, and injury prevention; we encourage you to wear your sealbelt, if you smoke; quite smoking, and we encourage family to use a protective helmet for bicycling and other sporting events that present an increased risk for head injury. IF YOUR SYMPTOMS WORSEN OR NEW SYMPTOMS DEVELOP, OR YOU HAVE CONCERNS ABOUT YOUR CONDITION; OR IF YOUR CONDITION WORSENS WHILE YOU ARE WAITING FOR YOUR FOLLOW UP APPO INTMENT; EITHER CONTACT YOUR PRIMARY CARE DOCTOR, THE PHYSICIAN WHOSE NAME AND NUMBER YOU WERE GIVEN, OR RETURN TO THE ED IMMEDIATELY. JOSE RAFAEL JOHNSTON APRN Dec 12, 2020 20:43 VANESSA HENRY MD Dec 12, 2020 23:29
[2020-12-12 20:49] LABS: CALCIUM 8.4 mg/dL (8.5-10.1); CREATININE 0.9 mg/dL (0.6-1.0); GFR 65.5; POTASSIUM 3.6 mmol/L (3.5-5.1)
[2020-12-12 20:56] LABS: ALBUMIN 3.2 g/dL (3.4-5.0); ALBUMIN/GLOBULIN RATIO 0.9 (1.0-1.7); TOTAL BILIRUBIN 1.3 mg/dL (0.2-1.0); TOTAL PROTEIN 6.8 g/dL (6.4-8.2)
[2020-12-12 21:17] LABS: URIC ACID 7.8 mg/dL (2.6-6.0)
[2020-12-12 21:45] LABS: BILIRUBIN,URINE NEG (NEG); CLARITY,URINE CLEAR; COLOR,URINE YELLOW; GLUCOSE,URINE NEG (NEG); NITRITE,URINE NEG (NEG)
[2020-12-12 21:49] LABS: RBC,URINE OCC /HPF (0-2)
[2020-12-12 21:50] LABS: BACTERIA,URINE MANY /HPF (0-FEW); SQUAMOUS EPITHELIAL CELL,UR MOD /LPF; WBC,URINE TNTC /HPF (0-4)
[2020-12-12] MEDS ORDERED: FOSFOMYCIN TROMETHAMINE 3 GM PACKET PO ONE (22:00)
[2020-12-12] MEDS ORDERED: diphenhydrAMINE HCL 25 MG CAPSULE PO ONE ×2 (22:45)
[2020-12-12] MEDS ORDERED: ACETAMINOPHEN 500 MG TABLET PO ONE (22:45)
[2020-12-12] MEDS ORDERED: IBUPROFEN 600 MG TABLET. PO ONE ×2 (22:45)
[2020-12-12 22:55] VITALS: BP 154/86
--- NOTE | 2020-12-14 11:49 | EKG ---
[address] [address] Test Date: 2020-12-12 Test Time: 19:16:14 Pat Name: DREAD BARBOSA Department: Room: Gender: F Dietary Service Aide: OUMOU : 1965 Requested By: JOSE RAFAEL JOHNSTON Order Number: [id number] Reading MD: Measurements Intervals [place] Rate: 92 P: 54 MS: 138 QRS: 39 QRSD: 78 T: 52 QT: 410 QTc: 513 Interpretive Statements SINUS RHYTHM ATRIAL PREMATURE COMPLEX(ES) PROLONGED QT NO SPECIFIC ECG ABNORMALITIES RI6.02 No previous ECG available for comparison
== END 2020-12-12 23:12 | disposition home or self-care (01) ==
LOC: ER 18:28
DX: T67.5XXA Heat exhaustion, unspecified, initial encounter (principal); N39.0 Urinary tract infection, site not specified; F17.200 Nicotine dependence, unspecified, uncomplicated; Z98.51 Tubal ligation status; Z59.0 Homelessness; X58.XXXA Exposure to other specified factors, initial encounter; Y93.89 Activity, other specified; Y92.89 Other specified places as the place of occurrence of the external cause; Y99.8 Other external cause status
CPT/HCPCS: 36415; 80053; 81001; 81025; 82550; 82553; 84550; 85025; 87086; 93005; 96360; 99285; J7030

== ENCOUNTER 2020-12-13 13:32 | Emergency (ER) | payer OTHER, MEDICAID ==
[~2020-12-13] VITALS: Ht 167.6 cm; Wt 90.0 kg
[2020-12-13] MEDS ORDERED: IBUPROFEN 600 MG TABLET. PO ONE (13:45)
--- NOTE | 2020-12-13 14:03 | PHYS DOC ---
Past History Past Medical History: Anxiety, Depression, Hepatitis, Schizophrenia Additional Past Medical Histor: hepatitis C (JOSE RAFAEL JOHNSTON APRN) Past Surgical History: , Tubal ligation, Other (JOSE RAFAEL JOHNSTON APRN) Smoking: Less than 1pk/day Alcohol Use: None Drug Use: None (JOSE RAFAEL JOHNSTON APRN) General Adult EDM: Chief Complaint: SUNBURN HPI: HPI: Patient is a 55-year-old female who presents with sunburn. Patient was seen yesterday for same complaint. Patient is homeless and stays outside during the day until the homeless retirement opens at night. Patient denies all other complaints. Patient is alert and oriented. History of schizophrenia, depression, anxiety. (JOSE RAFAEL JOHNSTON APRN) Review of Systems: Review of Systems: Constitutional: Denies fever or chills Eyes: Denies change in visual acuity HENT: Denies nasal congestion or sore throat Respiratory: Denies cough or shortness of breath Cardiovascular: Denies chest pain or edema GI: Denies abdominal pain, nausea, vomiting, bloody stools or diarrhea : Denies dysuria Musculoskeletal: Denies back pain or joint pain Integument: Reports sunburn Neurologic: Denies headache, focal weakness or sensory changes Endocrine: Denies polyuria or polydipsia Lymphatic: Denies swollen glands Psychiatric: Reports depression and anxiety (JOSE RAFAEL JOHNSTON APRN) Current Medications: Current Meds: Current Medications Medications (Trade) Dose Ordered Sig/[facility] Start Time Stop Time Status Last Admin Dose Admin Ibuprofen (Motrin) 600 mg 1X ONCE 12/13/20 13:45 12/13/20 13:46 DC 12/13/20 13:53 600 MG (JOSE RAFAEL JOHNSTON APRN) Allergies: Allergies: Allergies Coded Allergies Type Severity Reaction Last Updated Verified amitriptyline Allergy Unknown 07/10/20 Yes (JOSE RAFAEL JOHNSTON APRN) Physical Exam: PE: Constitutional: Well developed, well nourished, no acute distress, non-toxic appearance. [] HENT: Normocephalic, atraumatic, bilateral external ears normal, oropharynx moist, no oral exudates, nose normal. [] Eyes: PERRLA, EOMI, conjunctiva normal, no discharge. [] Neck: Normal range of motion, no tenderness, supple, no stridor. [] Cardiovascular:Heart rate regular rhythm, no murmur [] Lungs & Thorax: Bilateral breath sounds clear to auscultation [] Abdomen: Bowel sounds normal, soft, no tenderness, no masses, no pulsatile masses. [] Skin: Sunburn on all extremities and face. Back: No tenderness, no CVA tenderness. [] Extremities: No tenderness, no cyanosis, no clubbing, ROM intact, no edema. [] Neurologic: Alert and oriented X 3, normal motor function, normal sensory function, no focal deficits noted. [] Psychologic: Affect normal, judgement normal, mood normal. [] (JOSE RAFAEL JOHNSTON APRN) EKG: EKG: Sinus rhythm. Heart rate 77 bpm. [] (JOSE RAFAEL JOHNSTON APRN) Radiology/Procedures: Radiology/Procedures: [] (JOSE RAFAEL JOHNSTON APRN) Heart Score: C/O Chest Pain: No Risk Factors: Risk Factors: DM, Current or recent (<one month) smoker, HTN, HLP, family history of CAD, obesity. Risk Scores: Score 0 - 3: 2.5% MACE over next 6 weeks - Discharge Home Score 4 - 6: 20.3% MACE over next 6 weeks - Admit for Clinical Observation Score 7 - 10: 72.7% MACE over next 6 weeks - Early Invasive Strategies (JOSE RAFAEL JOHNSTON APRN) Course & Med Decision Making: Course & Med Decision Making Pertinent Labs and Imaging studies reviewed. (See chart for details) [] 55-year-old well-appearing female presents with a sunburn. Patient was laying on the grass outside when someone called EMS. Patient's only complaint is sunburn to extremities and face. Patient was seen in the emergency room yesterday for same complaints. Patient given ibuprofen for discomfort. Lotion was applied to areas of sunburn. Instructed patient to start using sunscreen while she is outside. Drink plenty of water. Patient stating that she wants to just stay and sleep in the ER. Patient is alert and oriented and hemodynamically stable. Patient is calm, stable and sleeping in her bed. Went in to discuss discharge with patient. Patient states that she needs to go to a mental hospital because she is having suicidal thoughts. Patient denies a plan. PAT team was consulted. Patient told Martha from PAT team that she was planning on overdosing on medications. Waiting for a call back from [facility] to see if they will be accepting patient. Patient is refusing labs to be drawn. Last Labs were drawn less than 24 hours ago. Did obtain new UA. UDS positive for methamphetamines and marijuana. 200 mg of Pyridium for urinary symptoms. [facility] refused to accept patient due to pilates coordinator stating patient was aggressive upon triage. Spoke with Martha from PAT team. Martha contacted [facility] but will not have any bed available until tomorrow. Martha will contact us for an update when we have a bed available. Transfer patient care to Dr. Miller. (JOSE RAFAEL JOHNSTON APRN) Course & Med Decision Making Patient will be discharged from the ER, the ambulance will take her to [facility] CENTER 12/12 Crisis Stabilization Services for Adult, 18 and older. [address] [address] 24-HOUR Crisis Line: [phone] (CASSIDY LUQUE DO) Tonio Disclaimer: Tonio Disclaimer: This electronic medical record was generated, in whole or in part, using a voice recognition dictation system. (JOSE RAFAEL JOHNSTON APRN) Departure Departure: Impression: Primary Impression: Sunburn Additional Impressions: UTI (urinary tract infection) Suicide Disposition: HOME / SELF CARE / HOMELESS Condition: STABLE Referrals: PCP,NO (PCP) Patient Instructions: Suicidal Feelings, How to Help Yourself, Sunburn, [id number], Urinary Tract Infection Additional Instructions: You were seen in the emergency room for sunburn. You were given ibuprofen for discomfort along with lotion to apply to areas that are affected. Please use sunscreen while you are outside, drink plenty of water. Try to stay out of the sun. Turn to emergency room if you have worsening symptoms or concerns. EMERGENCY DEPARTMENT GENERAL DISCHARGE INSTRUCTIONS Thank you for coming to [facility] (ED) today and trusting us with you care. We trust that you had a positivie experience in our Emergency Department. If you wish to speak to the department management, you may call the director at [phone]. YOUR FOLLOW UP INSTRUCTIONS ARE FOLLOWS: 1. Do you have a private Doctor? If you do not have a private doctor, please ask for a resource list of physicians or clinics that may be able to assist you with follow up care. 2. The Emergency Physician has interpreted your x-rays. The X-Ray specialist will also review them. If there is a change in the findings, you will be notified in 48 hours when at all possible. 3. A lab test or culture has been done, your results will be reviewed and you will be notified if you need a change in treatment. ADDITIONAL INSTRUCTIONS AND INFORMATION: 1. Your care today has been supervised by a physician who is specially trained in emergency care. Many problems require more than one evaluation for a complete diagnosis and treatment. We recommend that you schedule your follow up appointment as recommended to ensure complete treatment of you illness or injury. If you are unable to obtain follow up care and continue to have a problem, or if your condition worsens, we recommend that you return to the ED. 2. We are not able to safely determine your condition over the phone nor are we able to give sound medical advice over the phone. For these safety reasons, if you call for medical advice we will ask you to come to the ED for further evaluation. 3. If you have any questions regarding these discharge instructions please call the ED at [phone]. SAFETY INFORMATION: In the interest of safety, wellness, and injury prevention; we encourage you to wear your sealbelt, if you smoke; quite smoking, and we encourage family to use a protective helmet for bicycling and other sporting events that present an increased risk for head injury. IF YOUR SYMPTOMS WORSEN OR NEW SYMPTOMS DEVELOP, OR YOU HAVE CONCERNS ABOUT YOUR CONDITION; OR IF YOUR CONDITION WORSENS WHILE YOU ARE WAITING FOR YOUR FOLLOW UP APPOINTMENT; EITHER CONTACT YOUR PRIMARY CARE DOCTOR, THE PHYSICIAN WHOSE NAME AND NUMBER YOU WERE GIVEN, OR RETURN TO THE ED IMMEDIATELY. Follow up with [facility] [address] [address] 24-HOUR Crisis Line: [phone] Scripts Cephalexin (CEPHALEXIN) 500 Mg Tablet 1 TAB PO TID for uti for 7 Days, #21 TAB Prov: CASSIDY LUQUE DO 12/16/20 JOSE RAFAEL JOHNSTON APRN Dec 13, 2020 14:03 CASSIDY LUQUE DO Dec 16, 2020 08:49
[2020-12-13] MEDS ORDERED: IV NORMAL SALINE 1,000ML 1,000 ML IV ONE (14:45)
[2020-12-13] MEDS ORDERED: OLANZapine 2.5 MG TABLET PO ONE (15:00)
[2020-12-13 15:27] LABS: BARBITURATES NEG (NEG); BENZODIAZEPINES NEG (NEG); CANNABINOIDS POS (NEG); COCAINE NEG (NEG); METHADONE NEG (NEG); OPIATES NEG (NEG); PHENCYCLIDINE NEG (NEG)
[2020-12-13 15:31] LABS: AMPHETAMINE/METHAMPHETAMINE POS (NEG)
[2020-12-13 15:36] LABS: BILIRUBIN,URINE SMALL (NEG); CLARITY,URINE HAZY; COLOR,URINE AMBER; GLUCOSE,URINE NEG (NEG)
[2020-12-13 15:37] LABS: NITRITE,URINE NEG (NEG); UROBILINOGEN,URINE >=8.0 mg/dL (0.2 mg/dL)
[2020-12-13 15:40] LABS: BACTERIA,URINE 0 /HPF (0-FEW); SQUAMOUS EPITHELIAL CELL,UR MOD /LPF; WBC,URINE >40 /HPF (0-4)
[2020-12-14] MEDS ORDERED: OLANZapine 2.5 MG TABLET ONE (00:42)
[2020-12-14 01:24] LABS: BASO # 0.1 x10^3/uL (0.0-0.2); BASO % 1 % (0-3); EOS # 0.5 x10^3/uL (0.0-0.7); EOS % 6 % (0-3); HEMATOCRIT 36.1 % (36.0-47.0); HEMOGLOBIN 11.9 g/dL (12.0-15.5); LYMPH # 2.9 x10^3/uL (1.0-4.8); LYMPH % 37 % (24-48); MEAN CORPUSCULAR HEMOGLOBIN 29 pg (25-35); MEAN CORPUSCULAR HGB CONC 33 g/dL (31-37); MEAN CORPUSCULAR VOLUME 88 fL (79-100); MONO # 0.8 x10^3/uL (0.0-1.1); MONO % 11 % (0-9); NEUT # 3.5 x10^3uL (1.8-7.7); NEUT % 45 % (31-73); PLATELET COUNT 216 x10^3/uL (140-400); RED CELL DISTRIBUTION WIDTH 16.6 % (11.5-14.5); WHITE BLOOD COUNT 7.8 x10^3/uL (4.0-11.0)
[2020-12-14 01:26] LABS: CALCIUM 8.2 mg/dL (8.5-10.1); CREATININE 0.8 mg/dL (0.6-1.0); POTASSIUM 3.8 mmol/L (3.5-5.1)
[2020-12-14 01:32] LABS: ALBUMIN 2.7 g/dL (3.4-5.0); ALBUMIN/GLOBULIN RATIO 0.7 (1.0-1.7); TOTAL BILIRUBIN 0.6 mg/dL (0.2-1.0); TOTAL PROTEIN 6.4 g/dL (6.4-8.2)
--- NOTE | 2020-12-14 14:04 | EKG ---
[address] [address] Test Date: 2020-12-13 Test Time: 16:40:56 Pat Name: DREAD BARBOSA Department: Room: Gender: F [employer] Superintendent: DIANNE : 1965 Requested By: JOSE RAFAEL JOHNSTON Order Number: [id number] Reading MD: Measurements Intervals [place] Rate: 77 P: 64 SC: 144 QRS: 50 QRSD: 80 T: 54 QT: 406 QTc: 461 Interpretive Statements SINUS RHYTHM NORMAL ECG RI6.02 No previous ECG available for comparison
[2020-12-15] MEDS: CEPHALEXIN 250 MG CAPSULE PO SCH ×3 (09:14→21:00)
[2020-12-16 08:05] VITALS: BP 147/81
[2020-12-16] MEDS ORDERED: CEPH500T PO (08:49)
[2020-12-16] MEDS: CEPHALEXIN 250 MG CAPSULE PO SCH (08:53)
== END 2020-12-16 09:36 | disposition home or self-care (01) ==
LOC: ER 13:32
DX: L55.9 Sunburn, unspecified (principal); N39.0 Urinary tract infection, site not specified; R45.851 Suicidal ideations; F41.9 Anxiety disorder, unspecified; F32.9 Major depressive disorder, single episode, unspecified; F20.9 Schizophrenia, unspecified; F17.200 Nicotine dependence, unspecified, uncomplicated; Z20.822 Contact with and (suspected) exposure to COVID-19; Z59.0 Homelessness; Z88.8 Allergy status to other drugs, medicaments and biological substances
CPT/HCPCS: 36415; 80053; 80307; 81001; 82550; 85025; 87086; 87426; 93005; 99285; U0003

== ENCOUNTER 2021-02-14 15:39 | Emergency (ER) | payer OTHER, MEDICAID ==
[~2021-02-14] VITALS: Ht 167.6 cm; Wt 90.0 kg
[~2021-02-14 15:39] MED LIST changes: +CEPH500T PO
--- NOTE | 2021-02-14 16:12 | PHYS DOC ---
Past History Past Medical History: Anxiety, Depression, Hepatitis, Schizophrenia Additional Past Medical Histor: hepatitis C (AIDA BRYANT DO) Past Medical History: Anxiety, Depression (NATHAN YA MD) Past Surgical History: No Surgical History (AIDA BRYANT DO) Smoking: Less than 1pk/day Alcohol Use: None Drug Use: None (AIDA BRYANT DO) General Adult EDM: Chief Complaint: SUICIDAL IDEATION HPI: HPI: 55-year-old female presents with suicidal ideation. She tells me that she has been thinking about suicide a lot more over the past 1 week. She has been thinking specifically about cutting her wrists. She has previous attempts in the past by this method. She tells me that being homeless has depressed. She has been admitted for psychiatric treatment before. She denies any medical complaints to me. (AIDA BRYANT DO) Review of Systems: Review of Systems: Constitutional: Denies fever or chills Eyes: Denies change in visual acuity HENT: Denies nasal congestion or sore throat Respiratory: Denies cough or shortness of breath Cardiovascular: Denies chest pain or edema GI: Denies abdominal pain, nausea, vomiting, bloody stools or diarrhea : Denies dysuria Musculoskeletal: Denies back pain or joint pain Integument: Denies rash Neurologic: Denies headache, focal weakness or sensory changes Endocrine: Denies polyuria or polydipsia Lymphatic: Denies swollen glands Psychiatric: Suicidal (AIDA BRYANT DO) Allergies: Allergies: Allergies Coded Allergies Type Severity Reaction Last Updated Verified amitriptyline Allergy Unknown 07/10/20 Yes (AIDA BRYANT DO) Physical Exam: PE: Constitutional: Well developed, well nourished, no acute distress, non-toxic appearance. [] HENT: Normocephalic, atraumatic, bilateral external ears normal, oropharynx moist, no oral exudates, nose normal. [] Eyes: PERRLA, EOMI, conjunctiva normal, no discharge. [] Neck: Normal range of motion, no tenderness, supple, no stridor. [] Cardiovascular: Heart rate regular rhythm, no murmur [] Lungs & Thorax: Bilateral breath sounds clear to auscultation [] Abdomen: Bowel sounds normal, soft, no tenderness, no masses, no pulsatile masses. [] Skin: Warm, dry, no erythema, no rash. [] Back: No tenderness, no CVA tenderness. [] Extremities: No tenderness, no cyanosis, no clubbing, ROM intact, no edema. [] Neurologic: Alert and oriented X 3, normal motor function, normal sensory function, no focal deficits noted. [] Psychologic: Affect flat, mood depressed. [] (AIDA BRYANT DO) EKG: EKG: [] (AIDA BRYANT DO) Radiology/Procedures: Radiology/Procedures: [] (AIDA BRYANT DO) Heart Score: C/O Chest Pain: N/A Risk Factors: Risk Factors: DM, Current or recent (<one month) smoker, HTN, HLP, family history of CAD, obesity. Risk Scores: Score 0 - 3: 2.5% MACE over next 6 weeks - Discharge Home Score 4 - 6: 20.3% MACE over next 6 weeks - Admit for Clinical Observation Score 7 - 10: 72.7% MACE over next 6 weeks - Early Invasive Strategies (AIDA BRYANT DO) Course & Med Decision Making: Course & Med Decision Making Pertinent Labs and Imaging studies reviewed. (See chart for details) The patient's labs are essentially unremarkable. She is medically stable for behavioral health evaluation. That is pending at this time. I am signing the patient out to Dr. Ya at 1800. He will work with the behavioral health team to determine the patient's disposition. : The patient has had no complications throughout my shift today. The behavioral health team is still working on placement at this time. [] (AIDA BRYANT DO) Course & Med Decision Making See Dr. Bryant's chart for details prior to 1800 hrs. PAT - worker currently finishing assessment. Plan currently to find [facility] hospital placement. Time 2000 hours Still awaiting possible placement. 0130 hrs. Pt. currently sleeping. Asleep at 0230 hrs. Still awaiting placement. Pt. endorsed to Dr. Bryant at shift change 0600 hrs. Pt. sleeping most of night on . [place] Transfer not completed because bed taken by another pt. Pt. endorsed to Dr. Hansen- at shift change 0600- 02/15 Impression: 1. Depression 2. Anxiety 3. Suicidal ideation 4. Hx. Schizophrenia (NATHAN YA MD) Course & Med Decision Making Concern for suicidal ideations with plan. Covid test negative. Unremarkable EKG. Drug screen positive for marijuana. Nonspecific liver function test elevated. Patient is medically cleared, hemodynamically stable. Patient was accepted by Dr. De La Rosa at [facility] for inpatient psychiatric treatment. Patient stable at time of transfer and agrees with this plan. I have spoken with the patient and/or caregivers. I have explained the patient's condition, diagnosis and treatment plan based on the information available to me at this time. I have answered the patient's and/or caregivers questions and answered any concerns. The patient and/or caregivers have as good an understanding of the patient's diagnosis, condition and treatment plan as can be expected at this point. The patient has been stabilized within the capability of the emergency department. The patient will be transported for further care and management or will be moved to an observation or inpatient service. I have communicated with the staff or medical practitioner taking over this patient's care. (JAXON HANSEN DO) Dragon Disclaimer: Dragon Disclaimer: This electronic medical record was generated, in whole or in part, using a voice recognition dictation system. (AIDA BRYANT DO) Departure Departure: Impression: Primary Impression: Suicidal ideation Disposition: [address] [place] [address] ([facility], accepted by Dr. De La Rosa) Condition: STABLE Referrals: PCP,NO (PCP) Dragon Disclaimer This chart was dictated in whole or in part using Voice Recognition software in a busy, high-work load, and often noisy Emergency Department environment. It may contain unintended and wholly unrecognized errors or omissions. (NATHAN YA MD) Dragon Disclaimer This chart was dictated in whole or in part using Voice Recognition software in a busy, high-work load, and often noisy Emergency Department environment. It ma y contain unintended and wholly unrecognized errors or omissions. (AIDA BRYANT DO) AIDA BRYANT DO Feb 14, 2021 16:12 NATHAN YA MD Feb 14, 2021 20:17 JAXON HANSEN DO Feb 16, 2021 10:35
[2021-02-14 16:32] LABS: BASO # 0.1 x10^3/uL (0.0-0.2); BASO % 1 % (0-3); EOS # 0.4 x10^3/uL (0.0-0.7); EOS % 5 % (0-3); HEMATOCRIT 41.8 % (36.0-47.0); HEMOGLOBIN 13.8 g/dL (12.0-15.5); LYMPH % 26 % (24-48); MEAN CORPUSCULAR HEMOGLOBIN 28 pg (25-35); MEAN CORPUSCULAR HGB CONC 33 g/dL (31-37); MEAN CORPUSCULAR VOLUME 86 fL (79-100); MONO # 0.9 x10^3/uL (0.0-1.1); MONO % 12 % (0-9); NEUT # 4.1 x10^3uL (1.8-7.7); NEUT % 55 % (31-73); PLATELET COUNT 260 x10^3/uL (140-400); RED BLOOD COUNT 4.86 x10^6/uL (3.50-5.40); WHITE BLOOD COUNT 7.4 x10^3/uL (4.0-11.0)
[2021-02-14 16:41] LABS: CALCIUM 9.3 mg/dL (8.5-10.1); CREATININE 1.1 mg/dL (0.6-1.0); POTASSIUM 4.1 mmol/L (3.5-5.1)
[2021-02-14 16:45] LABS: SALIC 4.7 mg/dL (2.8-20.0)
[2021-02-14 16:46] LABS: ACETAMIN < 2 mcg/mL (10-30)
[2021-02-14 16:47] LABS: ALBUMIN 3.5 g/dL (3.4-5.0); ALBUMIN/GLOBULIN RATIO 0.8 (1.0-1.7); TOTAL BILIRUBIN 0.4 mg/dL (0.2-1.0)
[2021-02-14 17:59] LABS: BARBITURATES NEG (NEG); BENZODIAZEPINES NEG (NEG); CANNABINOIDS POS (NEG); COCAINE NEG (NEG); METHADONE NEG (NEG); OPIATES NEG (NEG); PHENCYCLIDINE NEG (NEG)
[2021-02-14 18:02] LABS: AMPHETAMINE/METHAMPHETAMINE NEG (NEG)
[2021-02-14 18:28] LABS: BACTERIA,URINE 0 /HPF (0-FEW); BILIRUBIN,URINE NEG (NEG); CLARITY,URINE HAZY; COLOR,URINE YELLOW; GLUCOSE,URINE NEG (NEG); NITRITE,URINE NEG (NEG); RBC,URINE 0 /HPF (0-2); SQUAMOUS EPITHELIAL CELL,UR FEW /LPF; WBC,URINE 0 /HPF (0-4)
[2021-02-16 08:57] LABS: U PREG PATIENT NEGATIVE (NEG)
[2021-02-16 15:34] VITALS: BP 138/68
--- NOTE | 2021-02-16 19:32 | EKG ---
[address] [address] Test Date: 2021-02-16 Test Time: 08:32:56 Pat Name: DREAD BARBOSA Department: Room: Gender: F Operations Associate: QUIANA : [id number] Requested By: JAXON HANSEN Order Number: [id number] Reading MD: Measurements Intervals [place] Rate: 61 P: [place]: QRS: 51 QRSD: 78 T: 65 QT: 452 QTc: 457 Interpretive Statements ATRIAL FLUTTER ABNORMAL ECG RI6.02 No previous ECG available for comparison
== END 2021-02-16 15:37 ==
LOC: ER 15:39
DX: F32.9 Major depressive disorder, single episode, unspecified (principal); R45.851 Suicidal ideations; F41.9 Anxiety disorder, unspecified; F20.9 Schizophrenia, unspecified; F17.200 Nicotine dependence, unspecified, uncomplicated; Z20.822 Contact with and (suspected) exposure to COVID-19; Z88.8 Allergy status to other drugs, medicaments and biological substances
CPT/HCPCS: 36415; 80053; 80307; 80329; 81001; 81025; 85025; 87426; 93005; 99285; U0003; G0480

== ENCOUNTER 2021-03-22 11:17 | Emergency (ER) | payer OTHER, MEDICAID ==
[~2021-03-22] VITALS: Ht 162.6 cm; Wt 82.0 kg
[~2021-03-22 11:17] MED LIST changes: -CYCL-331 PO; +CYCL10TA19 PO
--- NOTE | 2021-03-22 11:25 | PHYS DOC ---
Past History Past Medical History: Anxiety, Depression Additional Past Medical Histor: hepatitis C (MAGNO LEE APRN) Past Surgical History: No Surgical History (MAGNO LEE APRN) Smoking: Less than 1pk/day Alcohol Use: Sober Drug Use: None (MAGNO LEE APRN) General Adult EDM: Chief Complaint: SUICIDAL IDEATION HPI: HPI: Patient is a 56-year-old female who presents to the emergency department via EMS for suicidal ideation with a plan. Patient reports that she attempted to kill herself today by cutting her left wrist. Patient has a 4 cm superficial laceration noted to her left wrist. Patient reports many attempts in the past. She states she has a history of depression and Parkinson's. She was prescribed Thorazine but did not fill the prescription because she had stated that she did not have transport to the emergency. Patient denies any homicidal ideation. Cristian rios does not have outpatient psychiatric follow-up. Patient was recently discharged from [facility]. Patient denies any alcohol or drug use. (MAGNO LEE APRN) Review of Systems: Review of Systems: 14 body systems of the review of systems have been reviewed. See HPI for pertinent positive and negative responses, otherwise all other systems are negative, nonpertinent or noncontributory (MAGNO LEE APRN) Allergies: Allergies: Allergies Coded Allergies Type Severity Reaction Last Updated Verified amitriptyline Allergy Unknown 07/10/20 Yes (MAGNO LEE APRN) Physical Exam: PE: Constitutional: Well developed, well nourished, no acute distress, non-toxic appearance. [] HENT: Normocephalic, atraumatic, bilateral external ears normal, oropharynx moist, no oral exudates, nose normal. [] Eyes: PERRL, EOMI, conjunctiva normal, no discharge. [] Neck: Normal range of motion, no tenderness, supple, no stridor. [] Cardiovascular:Heart rate regular rhythm, no murmur [] Lungs & Thorax: Bilateral breath sounds clear to auscultation [] Abdomen: Bowel sounds normal, soft, no tenderness, no masses, no pulsatile masses. [] Skin: Warm, dry, no erythema, no rash, 4 cm superficial laceration noted to the volar aspect of patient's left wrist, wound is well approximated surrounding signs of infection such as redness, warmth, swelling or drainage, no active bleeding Back: Normal range of motion Extremities: No tenderness, no cyanosis, no clubbing, ROM intact, no edema. [] Neurologic: Alert and oriented X 3, normal motor function, normal sensory function, no focal deficits noted. [] Psychologic: Affect normal, judgement normal, mood normal. [] (MAGNO LEE APRN) Current Patient Data: Labs: Laboratory Tests Test 03/22/21 11:38 03/22/21 11:45 03/22/21 11:48 White Blood Count 5.1 x10^3/uL Red Blood Count 4.65 x10^6/uL Hemoglobin 12.9 g/dL Hematocrit 39.8 % Mean Corpuscular Volume 86 fL Mean Corpuscular Hemoglobin 28 pg Mean Corpuscular Hemoglobin Concent 32 g/dL Red Cell Distribution Width 15.7 % Platelet Count 201 x10^3/uL Neutrophils (%) (Auto) 42 % Lymphocytes (%) (Auto) 39 % Monocytes (%) (Auto) 10 % Eosinophils (%) (Auto) 7 % Basophils (%) (Auto) 1 % Neutrophils # (Auto) 2.1 x10^3uL Lymphocytes # (Auto) 2.0 x10^3/uL Monocytes # (Auto) 0.5 x10^3/uL Eosinophils # (Auto) 0.4 x10^3/uL Basophils # (Auto) 0.1 x10^3/uL Sodium Level 140 mmol/L Potassium Level 3.2 mmol/L Chloride Level 103 mmol/L Carbon Dioxide Level 24 mmol/L Anion Gap 13 Blood Urea Nitrogen 15 mg/dL Creatinine 1.0 mg/dL Estimated GFR (Cockcroft-Gault) 57.8 BUN/Creatinine Ratio 15 Glucose Level 96 mg/dL Calcium Level 9.2 mg/dL Total Bilirubin 0.5 mg/dL Aspartate Amino Transf (AST/SGOT) 59 U/L Alanine Aminotransferase (ALT/SGPT) 51 U/L Alkaline Phosphatase 88 U/L Total Protein 7.5 g/dL Albumin 3.4 g/dL Albumin/Globulin Ratio 0.8 Ethyl Alcohol Level < 10 mg/dL Urine Collection Type Clean catch Urine Color Yellow Urine Clarity Hazy Urine pH 5.5 Urine Specific [place] >=1.030 Urine Protein Neg Urine Glucose (UA) Neg mg/dL Urine Ketones (Stick) 15 mg/dL Urine Blood Neg Urine Nitrite Neg Urine Bilirubin Small Urine Urobilinogen Dipstick 4.0 mg/dL Urine Leukocyte Esterase Neg Urine RBC 0 /HPF Urine WBC 0 /HPF Urine Squamous Epithelial Cells Few /LPF Urine Bacteria 0 /HPF Urine Mucus Marked /LPF Urine Opiates Screen Neg Urine Methadone Screen Neg Urine Barbiturates Neg Urine Phencyclidine Screen Neg Urine Amphetamine/Methamphetamine Neg Urine Benzodiazepines Screen Neg Urine Cocaine Screen Neg Urine Cannabinoids Screen Pos Urine Ethyl Alcohol Neg SARS-CoV-2 Antigen (Rapid) Negative Current Medications Medications (Trade) Dose Ordered Sig/La Route PRN Reason Start Time Stop Time Status Last Admin Dose Admin Potassium Chloride (Klor-Con) 40 meq 1X ONCE PO 03/22/21 14:00 03/22/21 14:01 DC (MAGNO LEE APRN) EKG: EKG: [] (MAGNO LEE APRN) Radiology/Procedures: Radiology/Procedures: [] (MAGNO LEE APRN) Heart Score: C/O Chest Pain: N/A Risk Factors: Risk Factors: DM, Current or recent (<one month) smoker, HTN, HLP, family hist ory of CAD, obesity. Risk Scores: Score 0 - 3: 2.5% MACE over next 6 weeks - Discharge Home Score 4 - 6: 20.3% MACE over next 6 weeks - Admit for Clinical Observation Score 7 - 10: 72.7% MACE over next 6 weeks - Early Invasive Strategies (MAGNO LEE APRN) Course & Med Decision Making: Course & Med Decision Making Pertinent Labs and Imaging studies reviewed. (See chart for details) Patient presents to the emergency department after a suicide attempt. Work-up in the ER consisted of blood work and urinalysis to medically clear patient for psychiatric treatment. Patient placed on one-to-one observation and suicide precautions initiated. Patient to be evaluated by the psychiatric assessment team. Consult placed. Psychiatric assessment team has evaluated patient and is attempting to place patient at [facility]. Patient was noted to have hypokalemia and this was replaced in the ER with supplementation. Patient medically cleared at this time. Patient is resting comfortably at this time. 1839: Patient is next in line to be placed at [facility], we are awaiting a call with acceptance and nurse to nurse report at this time. Patient updated. I discussed patients care with SANDRA Black, care transferred at this time. 1843. (MAGNO LEE APRN) Course & Med Decision Making I spoke with Johnnie from PAT team who states that patient was accepted at [facility]. Patient refused to be admitted there because of how far away it was. Informed Johnnie of patient's concerns. Johnnie was able to get patient admitted to [facility]. Patient was happy with admission plan. Patient was hemodynamically stable upon disposition with EMS. (JOSE RAFAEL JOHNSTON APRN) Tonio Disclaimer: Tonio Disclaimer: This electronic medical record was generated, in whole or in part, using a voice recognition dictation system. (MAGNO LEE APRN) Departure Departure: Impression: Primary Impression: Medical clearance for psychiatric admission Additional Impression: Suicidal ideation Disposition: [address] [place] [address] Condition: GOOD Referrals: PCP,NO (PCP) Attending Signature Attending Signature I have participated in the care of this patient and I have reviewed and agree with all pertinent clinical information above including history, exam, and recommendations. (NATHAN BRICEÑO MD) MAGNO LEE APRN Mar 22, 2021 11:25 JOSE RAFAEL JOHNSTON APRN Mar 22, 2021 22:34 NATHAN BRICEÑO MD Mar 26, 2021 17:38
[2021-03-22 12:20] LABS: BASO # 0.1 x10^3/uL (0.0-0.2); BASO % 1 % (0-3); EOS # 0.4 x10^3/uL (0.0-0.7); EOS % 7 % (0-3); HEMATOCRIT 39.8 % (36.0-47.0); HEMOGLOBIN 12.9 g/dL (12.0-15.5); LYMPH % 39 % (24-48); MEAN CORPUSCULAR HEMOGLOBIN 28 pg (25-35); MEAN CORPUSCULAR HGB CONC 32 g/dL (31-37); MEAN CORPUSCULAR VOLUME 86 fL (79-100); MONO # 0.5 x10^3/uL (0.0-1.1); MONO % 10 % (0-9); NEUT # 2.1 x10^3uL (1.8-7.7); NEUT % 42 % (31-73); PLATELET COUNT 201 x10^3/uL (140-400); RED BLOOD COUNT 4.65 x10^6/uL (3.50-5.40); RED CELL DISTRIBUTION WIDTH 15.7 % (11.5-14.5); WHITE BLOOD COUNT 5.1 x10^3/uL (4.0-11.0)
[2021-03-22 12:39] LABS: AMPHETAMINE/METHAMPHETAMINE NEG (NEG); BARBITURATES NEG (NEG); BENZODIAZEPINES NEG (NEG); CANNABINOIDS POS (NEG); COCAINE NEG (NEG); METHADONE NEG (NEG); OPIATES NEG (NEG); PHENCYCLIDINE NEG (NEG)
[2021-03-22 12:39] LABS: CALCIUM 9.2 mg/dL (8.5-10.1); GFR 57.8; POTASSIUM 3.2 mmol/L (3.5-5.1)
[2021-03-22 12:44] LABS: ALBUMIN 3.4 g/dL (3.4-5.0); ALBUMIN/GLOBULIN RATIO 0.8 (1.0-1.7); TOTAL BILIRUBIN 0.5 mg/dL (0.2-1.0); TOTAL PROTEIN 7.5 g/dL (6.4-8.2)
[2021-03-22 12:51] LABS: BILIRUBIN,URINE SMALL (NEG); CLARITY,URINE HAZY; COLOR,URINE YELLOW; GLUCOSE,URINE NEG (NEG); NITRITE,URINE NEG (NEG); RBC,URINE 0 /HPF (0-2); WBC,URINE 0 /HPF (0-4)
[2021-03-22 12:52] LABS: BACTERIA,URINE 0 /HPF (0-FEW); SQUAMOUS EPITHELIAL CELL,UR FEW /LPF
[2021-03-22] MEDS ORDERED: POTASSIUM CHLORIDE 20 MEQ TABLET.ER. PO ONE (14:00)
[2021-03-22 21:03] VITALS: BP 106/84
== END 2021-03-22 21:19 ==
LOC: ER 11:17
DX: Z00.8 Encounter for other general examination (principal); S61.512A Laceration without foreign body of left wrist, initial encounter; R45.851 Suicidal ideations; F41.9 Anxiety disorder, unspecified; F32.9 Major depressive disorder, single episode, unspecified; F17.200 Nicotine dependence, unspecified, uncomplicated; Z20.822 Contact with and (suspected) exposure to COVID-19; Z88.8 Allergy status to other drugs, medicaments and biological substances; X83.8XXA Intentional self-harm by other specified means, initial encounter; Y93.89 Activity, other specified; Y92.89 Other specified places as the place of occurrence of the external cause; Y99.8 Other external cause status
CPT/HCPCS: 36415; 80053; 80307; 81001; 85025; 87426; 99285; C9803; G0480; U0003

== ENCOUNTER 2021-04-03 15:38 | Emergency (ER) | payer OTHER, MEDICAID ==
[~2021-04-03] VITALS: Ht 162.6 cm; Wt 82.0 kg
[2021-04-03 15:50] VITALS: BP 152/79
--- NOTE | 2021-04-03 16:19 | RAD ---
EXAMINATION: XR CHEST 1V CLINICAL HISTORY: Shortness of breath EXAM DATE/TIME: 04/03/2021 4:05 PM COMPARISON: 09/10/2020 FINDINGS: Lines, Tubes, and Devices: None. Cardiomediastinal Silhouette: Normal heart size. Lungs and Pleura: No evidence of focal airspace consolidation or pleural effusion. Pulmonary vasculat ure unremarkable. Bones and Soft Tissues: Degenerative changes in the thoracic spine. IMPRESSION: No evidence of acute cardiopulmonary abnormality. Electronically signed by: Mauricio Mora DO (04/03/2021 4:16 PM) [id number]
--- NOTE | 2021-04-03 16:20 | EKG ---
[address] [address] Test Date: 2021-04-03 Test Time: 16:05:32 Pat Name: DREAD BARBOSA Department: Room: Gender: F Vehicle Sales Professional: LIT : 1965 Requested By: ARTHUR POE Order Number: [id number] Reading MD: Cricket Blanca MD Measurements Intervals [place] Rate: 67 P: 51 AK: 142 QRS: 35 QRSD: 78 T: 42 QT: 438 QTc: 466 Interpretive Statements SINUS RHYTHM NON-SPECIFIC ST/T CHANGES Electronically Signed On 04-04-2021 13:47:39 EXTENSION PROFESSOR by Cricket Blanca MD
--- NOTE | 2021-04-03 16:35 | PHYS DOC ---
Past History Past Medical History: Anxiety, Depression Additional Past Medical Histor: hepatitis C (DEEPIKAARTHUR Jada KARATE TEACHER) Past Surgical History: , Hysterectomy (DEEPIKAARTHUR KARATE TEACHER) Smoking: Less than 1pk/day Alcohol Use: None Drug Use: None (ARTHUR POE Jada KARATE TEACHER) Adult General Chief Complaint Chief Complaint: SHORTNESS OF BREATH [facility] HPI Patient is a 56-year-old female patient with a history of depression, anxiety and Parkinson's who presents to the ED today complaining of shortness of breath for 1 month as well as suicidal ideation with a plan of taking her pills, previous history of SI and wrist cutting. Patient is homeless. She states she was seen at [facility] a month ago for shortness of breath, she states she was told she has a lung nodule. Denies any fever. Denies any chest pain. (DEEPIKAARTHUR Jada KARATE TEACHER) Review of Systems Review of Systems Constitutional: Denies fever or chills [] Eyes: Denies change in visual acuity, redness, or eye pain [] HENT: Denies nasal congestion or sore throat [] Respiratory: Reports shortness of breath. Denies cough or shortness of breath [] Cardiovascular: No additional information not addressed in HPI [] GI: Denies abdominal pain, nausea, vomiting, bloody stools or diarrhea [] : Denies dysuria or hematuria [] Musculoskeletal: Denies back pain or joint pain [] Integument: Denies rash or skin lesions [] Neurologic: Denies headache, focal weakness or sensory changes [] Psych: Reports SI All other systems were reviewed and found to be within normal limits, except as documented in this note. (ARTHUR POE KARATE TEACHER) Allergies Allergies Allergies Coded Allergies Type Severity Reaction Last Updated Verified amitriptyline Allergy Unknown 03/22/21 Yes (JENNIFERARTHUR Altamirano KARATE TEACHER) Physical Exam Physical Exam Constitutional: Well developed, well nourished, no acute distress, non-toxic appearance. [] HENT: Normocephalic, atraumatic, bilateral external ears normal, oropharynx moist, no oral exudates, nose normal. [] Eyes: PERRLA, EOMI, conjunctiva normal, no discharge. [] Neck: Normal range of motion, no tenderness, supple, no stridor. [] Cardiovascular:Heart rate regular rhythm, no murmur [] Lungs & Thorax: Bilateral breath sounds clear to auscultation [] Abdomen: Bowel sounds normal, soft, no tenderness, no masses, no pulsatile masses. [] Skin: Warm, dry, no erythema, no rash. [] Back: No tenderness, no CVA tenderness. [] Extremities: No tenderness, no cyanosis, no clubbing, ROM intact, no edema. [] Neurologic: Alert and oriented X 3, normal motor function, normal sensory function, no focal deficits noted. [] Psychologic: Flat affect, has all her belongings in the ED (ARTHUR POE APRN) EKG EKG [address] Siddiqui sinus rhythm heart rate 67 no STEMI [] (ARTHUR POE APRN) Radiology/Procedures Radiology/Procedures []PROCEDURE: PORTABLE CHEST 1V EXAMINATION: XR CHEST 1V CLINICAL HISTORY: Shortness of breath EXAM DATE/TIME: 04/03/2021 4:05 PM COMPARISON: 09/10/2020 FINDINGS: Lines, Tubes, and Devices: None. Cardiomediastinal Silhouette: Normal heart size. Lungs and Pleura: No evidence of focal airspace consolidation or pleural effusion. Pulmonary vasculature unremarkable. Bones and Soft Tissues: Degenerative changes in the thoracic spine. IMPRESSION: No evidence of acute cardiopulmonary abnormality. Electronically signed by: Mauricio Mejia DO (04/03/2021 4:16 PM) [id number] DICTATED AND SIGNED BY: MAURICIO MEJIA DO DATE: 04/03/21 1615 CC: ARTHUR POE APRN; PCP,NO ~MTH0 0 (ARTHUR POE APRN) Heart Score C/O Chest Pain: N/A Risk Factors: Risk Factors: DM, Current or recent (<one month) smoker, HTN, HLP, family history of CAD, obesity. Risk Scores: Risk Factors: DM, Current or recent (<one month) smoker, HTN, HLP, family history of CAD, obesity. (ARTHUR POE APRN) Course & Med Decision Making Course & Med Decision Making Pertinent Labs and Imaging studies reviewed. (See chart for details) This is a 56-year-old homeless female patient presenting today complaining of suicidal ideation with a plan of taking her pills as well as shortness of breath for 1 month. Patient has been seen in this ED multiple times for SI. EKG and labs are negative for any acute findings. Chest x-ray is negative. Johnnie from PAT team evaluated patient. There is no bed at [facility] until tomorrow. [address] Henry (ARTHUR POE APRN) Course & Med Decision Making Patient care handed off to day team pending PAT reassessment and bed assignment at [facility]. No acute events overnight. (VANESSA HENRY MD) Dragon Disclaimer Dragon Disclaimer This electronic medical record was generated, in whole or in part, using a voice recognition dictation system. (ARTHUR POE APRN) Departure Departure: Impression: Primary Impression: Suicidal ideation Additional Impression: Shortness of breath Referrals: PCP,NO (PCP) Problem Qualifiers ARTHUR POE APRN Apr 03, 2021 16:35 VANESSA HENRY MD Apr 04, 2021 04:19
[2021-04-03 16:47] LABS: BARBITURATES NEG (NEG); BENZODIAZEPINES NEG (NEG); CANNABINOIDS POS (NEG); COCAINE NEG (NEG); METHADONE NEG (NEG); OPIATES NEG (NEG); PHENCYCLIDINE NEG (NEG)
[2021-04-03 16:48] LABS: BASO % 1 % (0-3); EOS # 0.2 x10^3/uL (0.0-0.7); EOS % 3 % (0-3); HEMATOCRIT 42.5 % (36.0-47.0); HEMOGLOBIN 13.7 g/dL (12.0-15.5); LYMPH # 2.3 x10^3/uL (1.0-4.8); LYMPH % 33 % (24-48); MEAN CORPUSCULAR HEMOGLOBIN 27 pg (25-35); MEAN CORPUSCULAR HGB CONC 32 g/dL (31-37); MEAN CORPUSCULAR VOLUME 85 fL (79-100); MONO # 0.7 x10^3/uL (0.0-1.1); MONO % 11 % (0-9); NEUT # 3.6 x10^3uL (1.8-7.7); NEUT % 53 % (31-73); PLATELET COUNT 222 x10^3/uL (140-400); RED CELL DISTRIBUTION WIDTH 15.6 % (11.5-14.5); WHITE BLOOD COUNT 6.9 x10^3/uL (4.0-11.0)
[2021-04-03 16:49] LABS: BILIRUBIN,URINE NEG (NEG); CLARITY,URINE CLEAR; COLOR,URINE YELLOW; GLUCOSE,URINE NEG (NEG)
[2021-04-03 16:50] LABS: BACTERIA,URINE 0 /HPF (0-FEW); NITRITE,URINE NEG (NEG); RBC,URINE 0 /HPF (0-2); SQUAMOUS EPITHELIAL CELL,UR MOD /LPF; WBC,URINE 0 /HPF (0-4)
[2021-04-03 16:53] LABS: AMPHETAMINE/METHAMPHETAMINE NEG (NEG)
[2021-04-03 17:02] LABS: CALCIUM 9.3 mg/dL (8.5-10.1); CREATININE 0.8 mg/dL (0.6-1.0); GFR 74.7; POTASSIUM 3.9 mmol/L (3.5-5.1)
[2021-04-03 17:07] LABS: ALBUMIN 3.2 g/dL (3.4-5.0); ALBUMIN/GLOBULIN RATIO 0.8 (1.0-1.7); MAGNESIUM 1.8 mg/dL (1.8-2.4); TOTAL BILIRUBIN 0.2 mg/dL (0.2-1.0); TOTAL PROTEIN 7.2 g/dL (6.4-8.2)
[2021-04-03 17:18] LABS: ACETAMIN < 2.0 mcg/mL (10-30); SALIC 3.4 mg/dL (2.8-20.0)
[2021-04-03 17:19] LABS: ETHANOL < 10 mg/dL (0-10)
== END 2021-04-04 10:26 ==
LOC: ER 15:38
DX: F32.9 Major depressive disorder, single episode, unspecified (principal); R45.851 Suicidal ideations; F20.89 Other schizophrenia; R06.02 Shortness of breath; F41.9 Anxiety disorder, unspecified; F17.200 Nicotine dependence, unspecified, uncomplicated; Z20.822 Contact with and (suspected) exposure to COVID-19; Z88.8 Allergy status to other drugs, medicaments and biological substances
CPT/HCPCS: 36415; 71045; 80053; 80307; 80329; 81001; 83735; 84484; 85025; 87426; 93005; 99285; G0480; U0003

== ENCOUNTER 2021-08-06 11:18 | Emergency (ER) | payer OTHER, MEDICAID ==
[~2021-08-06] VITALS: Ht 162.6 cm; Wt 100.0 kg
--- NOTE | 2021-08-06 12:13 | PHYS DOC ---
Past History Past Medical History: Anxiety, Depression Additional Past Medical Histor: ADD, PTSD (RADHA SUMMERS MD) Past Surgical History: , Hysterectomy (RADHA SUMMERS MD) Smoking: Less than 1pk/day Alcohol Use: None Drug Use: None (RADHA SUMMERS MD) General Adult EDM: Chief Complaint: SUICIDAL IDEATION HPI: HPI: Patient is a 56-year-old female sent in from the [facility] for medical screening and psychiatric evaluation. Patient has history of schizophrenia and has been out of her medications for the past 2 weeks. (RADHA SUMMERS MD) Review of Systems: Review of Systems: All other systems within normal limits except for as noted in the HPI (RADHA SUMMERS MD) Allergies: Allergies: Allergies Coded Allergies Type Severity Reaction Last Updated Verified amitriptyline Allergy Unknown 03/22/21 Yes (RADHA SUMMERS MD) Physical Exam: PE: Constitutional: Well developed, well nourished, no acute distress, non-toxic appearance. [] HENT: Normocephalic, atraumatic, bilateral external ears normal, nose normal. [] Eyes: PERRLA, conjunctiva normal, no discharge. [] Neck: No rigidity, supple, no stridor. [] Cardiovascular: Regular rate and rhythm, brisk cap refill [] Lungs & Thorax: Non labored symmetric respirations, no tachypnea or respiratory distress [] Abdomen: Soft, nondistended. Skin: Warm, dry, no erythema, no rash. [] Back: Unremarkable Extremities: No deformities, range of motion grossly intact, no lower extremity edema [] Neurologic: Alert and oriented X 3, no focal deficits noted. [] Psychologic: Affect normal, judgement normal, mood normal. [] (RADHA SUMMERS MD) Current Patient Data: Vital Signs: Vital Signs Date Time Temp Pulse Resp B/P (MAP) Pulse Ox O2 Delivery O2 Flow Rate FiO2 08/06/21 11:48 98.2 87 18 162/46 (84) 98 (RADHA SUMMERS MD) EKG: EKG: No STEMI, normal intervals,Sinus rhythm [] (RADHA SUMMERS MD) Radiology/Procedures: Radiology/Procedures: [] (RADHA SUMMERS MD) Heart Score: C/O Chest Pain: No Risk Factors: Risk Factors: DM, Current or recent (<one month) smoker, HTN, HLP, family history of CAD, obesity. Risk Scores: Score 0 - 3: 2.5% MACE over next 6 weeks - Discharge Home Score 4 - 6: 20.3% MACE over next 6 weeks - Admit for Clinical Observation Score 7 - 10: 72.7% MACE over next 6 weeks - Early Invasive Strategies (RADHA SUMMERS MD) Course & Med Decision Making: Course & Med Decision Making Patient medically cleared for PAT evaluation. Pending placement at shift change, patient calm and cooperative during ER visit (RADHA SUMMERS MD) Course & Med Decision Making Patient care handed off to me at checkout pending placement for SI. Patient awake alert and oriented no acute distress. Vital signs not concerning. Taking p.o. well. PAT team to find placement in the morning. Patient grateful, verbalized understanding and agreed with plan of transfer in the morning. (VANESSA HENRY MD) Dragon Disclaimer: Dragon Disclaimer: This electronic medical record was generated, in whole or in part, using a voice recognition dictation system. (RADHA SUMMERS MD) Departure Departure: Impression: Primary Impression: Suicidal ideation Condition: STABLE Referrals: PCP,NO (PCP) RADHA SUMMERS MD Aug 06, 2021 12:13 VANESSA HENRY MD Aug 07, 2021 01:09
[2021-08-06 12:43] LABS: BASO # 0.1 x10^3/uL (0.0-0.2); BASO % 1 % (0-3); EOS # 0.2 x10^3/uL (0.0-0.7); EOS % 4 % (0-3); HEMATOCRIT 40.2 % (36.0-47.0); HEMOGLOBIN 13.1 g/dL (12.0-15.5); LYMPH # 1.6 x10^3/uL (1.0-4.8); LYMPH % 30 % (24-48); MEAN CORPUSCULAR HEMOGLOBIN 30 pg (25-35); MEAN CORPUSCULAR HGB CONC 33 g/dL (31-37); MEAN CORPUSCULAR VOLUME 90 fL (79-100); MONO # 0.5 x10^3/uL (0.0-1.1); MONO % 9 % (0-9); NEUT % 56 % (31-73); PLATELET COUNT 244 x10^3/uL (140-400); RED BLOOD COUNT 4.45 x10^6/uL (3.50-5.40); WHITE BLOOD COUNT 5.4 x10^3/uL (4.0-11.0)
[2021-08-06 13:00] LABS: CALCIUM 8.6 mg/dL (8.5-10.1); CREATININE 0.8 mg/dL (0.6-1.0); GFR 74.7; POTASSIUM 3.8 mmol/L (3.5-5.1)
[2021-08-06 13:03] LABS: ACETAMIN < 2 mcg/mL (10-30); ALBUMIN 3.3 g/dL (3.4-5.0); ALBUMIN/GLOBULIN RATIO 0.8 (1.0-1.7); ETHANOL < 10 mg/dL (0-10); INFLUENZA A PATIENT NEGATIVE (NEGATIVE); INFLUENZA B PATIENT NEGATIVE (NEGATIVE); MAGNESIUM 1.8 mg/dL (1.8-2.4); PHOSPHORUS 2.7 mg/dL (2.6-4.7); SALIC 3.4 mg/dL (2.8-20.0); TOTAL BILIRUBIN 0.6 mg/dL (0.2-1.0); TOTAL PROTEIN 7.6 g/dL (6.4-8.2)
[2021-08-06 14:55] LABS: BARBITURATES NEG (NEG); BENZODIAZEPINES NEG (NEG); CANNABINOIDS POS (NEG); COCAINE NEG (NEG); METHADONE NEG (NEG); OPIATES NEG (NEG); PHENCYCLIDINE NEG (NEG)
[2021-08-06 15:00] LABS: AMPHETAMINE/METHAMPHETAMINE NEG (NEG)
[2021-08-06 15:03] LABS: BACTERIA,URINE 0 /HPF (0-FEW); CLARITY,URINE CLEAR; COLOR,URINE YELLOW; GLUCOSE,URINE NEG (NEG); NITRITE,URINE NEG (NEG); RBC,URINE 0 /HPF (0-2); SQUAMOUS EPITHELIAL CELL,UR FEW /LPF; WBC,URINE 0 /HPF (0-4)
--- NOTE | 2021-08-07 09:08 | PHYS DOC ---
Past History Past Medical History: Anxiety, Depression Additional Past Medical Histor: ADD, PTSD Past Surgical History: , Hysterectomy Smoking: Less than 1pk/day Alcohol Use: None Drug Use: None General Adult EDM: Chief Complaint: SUICIDAL IDEATION HPI: HPI: HPI provided with assistance from Dr. Ayers who originally saw pt. HPI per her note as of 0700 on 08/07/21: "Patient is a 56-year-old female sent in from the [facility] for medical screening and psychiatric evaluation. Patient has history of schizophrenia and has been out of her medications for the past 2 weeks." Review of Systems: Review of Systems: See previous provider's note. Allergies: Allergies: Allergies Coded Allergies Type Severity Reaction Last Updated Verified amitriptyline Allergy Unknown 03/22/21 Yes Physical Exam: PE: See previous provider's note. Current Patient Data: Labs: Laboratory Tests Test 08/06/21 12:26 08/06/21 14:15 White Blood Count 5.4 x10^3/uL (4.0-11.0) Red Blood Count 4.45 x10^6/uL (3.50-5.40) Hemoglobin 13.1 g/dL (12.0-15.5) Hematocrit 40.2 % (36.0-47.0) Mean Corpuscular Volume 90 fL (79-100) Mean Corpuscular Hemoglobin 30 pg (25-35) Mean Corpuscular Hemoglobin Concent 33 g/dL (31-37) Red Cell Distribution Width 14.0 % (11.5-14.5) Platelet Count 244 x10^3/uL (140-400) Neutrophils (%) (Auto) 56 % (31-73) Lymphocytes (%) (Auto) 30 % (24-48) Monocytes (%) (Auto) 9 % (0-9) Eosinophils (%) (Auto) 4 % (0-3) H Basophils (%) (Auto) 1 % (0-3) Neutrophils # (Auto) 3.0 x10^3uL (1.8-7.7) Lymphocytes # (Auto) 1.6 x10^3/uL (1.0-4.8) Monocytes # (Auto) 0.5 x10^3/uL (0.0-1.1) Eosinophils # (Auto) 0.2 x10^3/uL (0.0-0.7) Basophils # (Auto) 0.1 x10^3/uL (0.0-0.2) Sodium Level 139 mmol/L (136-145) Potassium Level 3.8 mmol/L (3.5-5.1) Chloride Level 106 mmol/L (98-107) Carbon Dioxide Level 28 mmol/L (21-32) Anion Gap 5 (6-14) L Blood Urea Nitrogen 6 mg/dL (7-20) L Creatinine 0.8 mg/dL (0.6-1.0) Estimated GFR (Cockcroft-Gault) 74.7 BUN/Creatinine Ratio 8 (6-20) Glucose Level 89 mg/dL (70-99) Calcium Level 8.6 mg/dL (8.5-10.1) Phosphorus Level 2.7 mg/dL (2.6-4.7) Magnesium Level 1.8 mg/dL (1.8-2.4) Total Bilirubin 0.6 mg/dL (0.2-1.0) Aspartate Amino Transferase (AST) 56 U/L (15-37) H Alanine Aminotransferase (ALT) 59 U/L (14-59) Alkaline Phosphatase 96 U/L (46-116) Total Protein 7.6 g/dL (6.4-8.2) Albumin 3.3 g/dL (3.4-5.0) L Albumin/Globulin Ratio 0.8 (1.0-1.7) L Salicylates Level 3.4 mg/dL (2.8-20.0) Salicylate Last Dose Date Unknown Salicylate Last Dose Time Unknown Acetaminophen Level < 2 mcg/mL (10-30) L Acetaminophen Last Dose Date Unknown Acetaminophen Last Dose Time Unknown Ethyl Alcohol Level < 10 mg/dL (0-10) Influenza Type A (Rapid) Negative (NEGATIVE) Influenza Type B (Rapid) Negative (NEGATIVE) SARS-CoV-2 Antigen (Rapid) Negative (NEGATIVE) Urine Collection Type Unknown Urine Color Yellow Urine Clarity Clear Urine pH 7.5 Urine Specific [place] 1.020 Urine Protein Neg (NEG-TRACE) Urine Glucose (UA) Neg mg/dL (NEG) Urine Ketones (Stick) Neg mg/dL (NEG) Urine Blood Neg (NEG) Urine Nitrite Neg (NEG) Urine Bilirubin Neg (NEG) Urine Urobilinogen Dipstick 1.0 mg/dL (0.2 mg/dL) Urine Leukocyte Esterase Neg (NEG) Urine RBC 0 /HPF (0-2) Urine WBC 0 /HPF (0-4) Urine Squamous Epithelial Cells Few /LPF Urine Bacteria 0 /HPF (0-FEW) Urine Opiates Screen Neg (NEG) Urine Methadone Screen Neg (NEG) Urine Barbiturates Neg (NEG) Urine Phencyclidine Screen Neg (NEG) Urine Amphetamine/Methamphetamine Neg (NEG) Urine Benzodiazepines Screen Neg (NEG) Urine Cocaine Screen Neg (NEG) Urine Cannabinoids Screen Pos (NEG) Urine Ethyl Alcohol Neg (NEG) Vital Signs: Vital Signs Date Time Temp Pulse Resp B/P (MAP) Pulse Ox O2 Delivery O2 Flow Rate FiO2 08/06/21 11:48 98.2 87 18 162/46 (84) 98 Heart Score: C/O Chest Pain: No Course & Med Decision Making: Course & Med Decision Making Pertinent Labs and Imaging studies reviewed. (See chart for details) 0700: I assumed care of the pt from Dr. Miller pending placement in a psych facility. Reviewed pts presentation and all results and findings up to this point with Dr. Miller. Pt was in stable condition upon my assumption of care. Departure Departure: Impression: Primary Impression: Suicidal ideation Condition: STABLE Referrals: PCP,NO (PCP) CLEM CORTEZ MD Aug 07, 2021 09:08
[2021-08-07 14:12] VITALS: BP 121/74
--- NOTE | 2021-08-07 18:59 | EKG ---
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
== END 2021-08-07 17:30 ==
LOC: ER 11:18
DX: R45.851 Suicidal ideations (principal); F41.9 Anxiety disorder, unspecified; F32.9 Major depressive disorder, single episode, unspecified; F43.10 Post-traumatic stress disorder, unspecified; F20.9 Schizophrenia, unspecified; F17.200 Nicotine dependence, unspecified, uncomplicated; Z20.822 Contact with and (suspected) exposure to COVID-19; Z88.8 Allergy status to other drugs, medicaments and biological substances
CPT/HCPCS: 80053; 80307; 80329; 81001; 83735; 84100; 85025; 87428; 93005; 99285; G0480; U0003